=== PATIENT | male | born 1975 | race African-American/Black ===

== ENCOUNTER 2017-05-21 15:24 | Inpatient (IN) | payer OTHER ==
[2017-05-21 15:57] VITALS: BMI 25.7
--- NOTE | 2017-05-21 17:48 | HP ---
COWS - Scale Resting Pulse: 2= [place] 101-120 Sweatin= Chills/Flushing Restless Observation: 3= Extraneous Movement Pupil Size: 2= Moderately Dilated Bone or Joint Aches: 2= Severe Diffuse Aches Runny Nose/ Eye Tearin= Runny Nose/Eyes GI Upset > 30mins: 3= Vomiting/Diarrhea Tremor Observation: 2= Slight Tremor Visible Yawning Observation: 2= >3x During Session Anxiety or Irritability: 2=Irritable/Anxious Goose Flesh Skin: 0=Smooth Skin COWS Score: 21 CIWA Score - CIWA Score Nausea/Vomitin Muscle Tremors: 3 Anxiety: 3 Agitation: 3 Paroxysmal Sweats: 2 Orientation: 0-Oriented Tacttile Disturbances: 2-Mild Itch/Numbness/Burn Auditory Disturbances: 2-Mild Harshness/Frighten Visual Disturbances: 2-Mild Sensitivity Headache: 2-Mild CIWA-Ar Total Score: 22 Admission ROS BHS - HPI Chief Complaint: i need help to stop using heroin,cocaine,cannabis and alcohol Allergies/Adverse Reactions: Allergies Allergy/AdvReac Type Severity Reaction Status Date / Time No Known Allergies Allergy Verified 05/21/17 17:44 History of Present Illness: this 42 years old black male with heroin,alcohol,cocaine and marijuana dependence,seeking detox,last treamtment [facility] 07/13/11 to 07/16/11 type 2 dmon insulin hypertension nicotine dependence longest period of sobriety 2 years Exam Limitations: No Limitations - Ebola screening Have you traveled outside of the country in the last 21 days: No Have you had contact with anyone from an Ebola affected area: No Have you been sick,other than usual withdrawal symptoms: No Do you have a fever: No - Review of Systems Constitutional: Loss of Appetite, Malaise, Night Sweats, Changes in sleep, Weakness EENT: reports: Tearing, Nose Congestion Respiratory: reports: No Symptoms reported Cardiac: reports: No Symptoms Reported GI: reports: Diarrhea, Nausea, Vomiting, Abdominal cramping : reports: No Symptoms Reported Musculoskeletal: reports: Back Pain, Muscle Pain Integumentary: reports: Dryness Neuro: reports: Headache, Tremors Endocrine: reports: No Symptoms Reported Hematology: reports: No Symptoms Reported Psychiatric: reports: No Sypmtoms Reported, Judgement Intact, Mood/Affect Appropiate, Orientated x3 Patient History - Patient Medical History Hx Anemia: No Hx Asthma: No Hx Chronic Obstructive Pulmonary Disease (COPD): No Hx Cancer: No Hx Cardiac Disorders: No Hx Congestive Heart Failure: No Hx Hypertension: Yes (non comppliance) Hx Hypercholesterolemia: No Hx Pacemaker: No HX Cerebrovascular Accident: No Hx Seizures: No Hx Dementia: No Hx Diabetes: Yes (on insulin) Hx Gastrointestinal Disorders: No Hx Liver Disease: No Hx Genitourinary Disorders: No Hx Sexually Transmitted Disorders: No Hx Renal Disease (ESRD): No Hx Thyroid Disease: No Hx Human Immunodeficiency Virus (HIV): No (last 05/02 negative) Hx Hepatitis C: No Hx Depression: No Hx Suicide Attempt: No Hx Bipolar Disorder: No Hx Schizophrenia: No Other Medical History: no suicidal,no homicidal - Patient Surgical History Hx Orthopedic Surgery: Yes (left hip replacement [place] 2013) - PPD History Previous Implant?: Yes Documented Results: Negative w/o proof Implanted On Prior R Admission?: No PPD to be Administered?: Yes - Smoking Cessation Smoking history: Never smoked Aproximately how many cigarettes per day: 20 Hx Chewing Tobacco Use: No Initiated information on smoking cessation: Yes 'Breaking Loose' booklet given: 05/21/17 - Substance & Tx. History Hx Alcohol Use: Yes Hx Substance Use: Yes Substance Use Type: Alcohol, Cocaine, Heroin, Marijuana Hx Substance Use Treatment: Yes ([facility] 07/13/11 to 07/16/11) - Substances Abused Heroin Route: Inhalation Frequency: Daily Amount used: 2bags Age of first use: 35 Date of Last Use: 05/20/17 percocet Route: Oral Frequency: 3-6 times per week Amount used: 50 mgs Age of first use: 38 Date of Last Use: 05/20/17 Cocaine Route: Smoking Frequency: Daily Amount used: 100$ Age of first use: 13 Date of Last Use: 05/20/17 Marijuana/Hashish Route: Smoking Frequency: Daily Amount used: 20$ Age of first use: 13 Date of Last Use: 05/20/17 Alcohol Route: Oral Frequency: Daily Amount used: 2 of 6 packs of beer Age of first use: 13 Date of Last Use: 05/20/17 Family Disease History - Family Disease History Family History: Denies Admission Physical Exam S - Vital Signs Vital Signs: Vital Signs - 24 hr 05/21/17 15:50 Temperature 98 F Pulse Rate 108 H Respiratory 20 Rate Blood Pressure 154/99 - Physical General Appearance: Yes: Moderate Distress, Intoxicated, Tremorous, Irritable, Sweating, Anxious HEENTM: Yes: Normal ENT Inspection, YESENIA, Pharynx Normal Respiratory: Yes: Lungs Clear, Normal Breath Sounds, No Respiratory Distress Neck: Yes: Supple, Trachea in good position Breast: Yes: Within Normal Limits Cardiology: Yes: Within Normal Limits, Regular Rhythm, Regular Rate, S1, S2 Abdominal: Yes: Within Normal Limits, Normal Bowel Sounds, Non Tender, Flat, Soft Genitourinary: Yes: Within Normal Limits Back: Yes: Muscle Spasm Musculoskeletal: Yes: full range of Motion, Back pain, Muscle Pain Extremities: Yes: Normal Range of Motion, Tremors Neurological: Yes: early head start director II-XII NML intact, Alert, Motor Strength 5/5 Integumentary: Yes: Dry Lymphatic: Yes: Within Normal Limits - Diagnostic (1) Opioid dependence with withdrawal Current Visit: Yes Status: Acute (2) Alcohol dependence with uncomplicated withdrawal Current Visit: Yes Status: Acute (3) Cocaine dependence Current Visit: Yes Status: Acute (4) Cannabis dependence Current Visit: Yes Status: Acute (5) Nicotine dependence Current Visit: Yes Status: Acute (6) IDDM (insulin dependent diabetes mellitus) Current Visit: Yes Status: Acute (7) Essential hypertension Current Visit: Yes Status: Acute Cleared for Admission [facility] - Detox or Rehab [facility] Level of Care: Medically Managed Detox Regimen/Protocol: Methadone/Librium [facility] Breath Alcohol Content Breath Alcohol Content: 0 Urine Drug Screen - Results Drug Screen Negative: No Urine Drug Screen Results: THC-Marijuana, SUZY-Cocaine, OPI-Opiates
[2017-05-21] MEDS ORDERED: ACETAMINOPHEN 325 MG TABLET (FP) PO PRN (19:05)
[2017-05-21] MEDS ORDERED: MAGNESIUM CITRATE 300 ML BOTTLE PO PRN (19:05)
[2017-05-21] MEDS ORDERED: guaiFENesin/D-METHORPHAN HB 10 ML UNIT-DOSE CUPS PO PRN (19:05)
[2017-05-21] MEDS ORDERED: P-EPHED 60MG/TRIPROLIDI 2.5MG TABLET PO PRN (19:05)
[2017-05-21] MEDS ORDERED: chlordiazePOXIDE HCL 25 MG CAPSULE PO PRN (19:05)
[2017-05-21] MEDS ORDERED: LOPERAMIDE HCL 2 MG CAPSULE PO PRN (19:05)
[2017-05-21] MEDS ORDERED: MENTHOL/PHENOL 1 EACH UD MM PRN (19:05)
[2017-05-21] MEDS ORDERED: METHADONE HCL 10 MG TABLET (FOR DETOX USE ONLY) PO ONE ×2 (19:05→23:00)
[2017-05-21] MEDS ORDERED: IBUPROFEN 400 MG TABLET (FP) PO PRN (19:05)
[2017-05-21] MEDS ORDERED: chlordiazePOXIDE HCL 25 MG CAPSULE PO ONE (19:05)
[2017-05-21] MEDS: amLODIPine BESYLATE 10 MG TABLET (FP) PO SCH (19:25)
[2017-05-21] MEDS: LISINOPRIL 10 MG TABLET (FP) PO SCH (19:25)
[2017-05-21] MEDS: THIAMINE HCL 100 MG TABLET (FP) PO SCH (22:49)
[2017-05-21] MEDS: chlordiazePOXIDE HCL 25 MG CAPSULE PO SCH (22:49)
[2017-05-21] MEDS: INSULIN DETEMIR 100 UNITS/ML MDV SQ SCH (22:49)
[2017-05-21] MEDS: diphenhydrAMINE HCL 50 MG CAPSULE PO PRN (22:50)
[2017-05-21 22:52] LABS: URINE APPEARANCE CLEAR; URINE BILIRUBIN NEGATIVE (NEGATIVE); URINE BLOOD 1+ (NEGATIVE); URINE COLOR LTYELLOW; URINE GLUCOSE (UA) NEGATIVE (NEGATIVE); URINE KETONE TRACE (NEGATIVE); URINE LEUK ESTERASE NEGATIVE (NEGATIVE); URINE NITRITE NEGATIVE (NEGATIVE); URINE UROBILINOGEN NEGATIVE mg/dL (0.2-1.0)
[2017-05-21 23:05] LABS: URINE PROTEIN 2+ (NEGATIVE)
[2017-05-21 23:16] LABS: URINE BACTERIA RARE /hpf (NONE SEEN); URINE HYALINE CAST 1 /lpf; URINE MUCUS RARE; URINE RBC 1 /hpf (0-3); URINE WBC 3 /hpf (3-5)
[2017-05-22] MEDS: chlordiazePOXIDE HCL 25 MG CAPSULE PO SCH ×4 (05:45→22:54)
[2017-05-22 09:19] LABS: MCH 31.1 pg (25.7-33.7); MCHC 33.2 g/dl (32.0-35.9); MEAN CELL VOLUME 93.7 fl (80-96); MEAN PLT VOLUME 8.7 fl (7.5-11.1); PLATELET COUNT 300 K/MM3 (134-434); RDW 13.4 % (11.9-15.9); WHITE BLOOD COUNT 4.5 K/mm3 (4.0-10.0)
[2017-05-22 09:50] LABS: ALBUMIN 3.1 g/dl (3.4-5.0); ANION GAP 5 (8-16); CALCIUM 9.2 mg/dL (8.5-10.1); CO2 28 mmol/L (21-32); GLUCOSE,RANDOM 119 mg/dL (74-106)
[2017-05-22 09:55] LABS: ALK PHOS 98 U/L (45-117); BILIRUBIN,TOTAL 0.8 mg/dL (0.2-1.0); CREATININE 1.2 mg/dL (0.7-1.3); SGOT/AST 17 U/L (15-37); SGPT/ALT 27 U/L (12-78); TOT PROT 6.4 g/dl (6.4-8.2)
[2017-05-22] MEDS ORDERED: METHADONE HCL 10 MG TABLET (FOR DETOX USE ONLY) PO SCH (10:00)
[2017-05-22] MEDS: PRENATAL VITAMINS W/ FOLIC ACID TABLET (FP) PO SCH (10:48)
[2017-05-22] MEDS: LISINOPRIL 10 MG TABLET (FP) PO SCH (10:49)
[2017-05-22] MEDS: amLODIPine BESYLATE 10 MG TABLET (FP) PO SCH (10:49)
--- NOTE | 2017-05-22 12:36 | PN ---
[facility] CIWA - CIWA Score Nausea/Vomitin Muscle Tremors: 3 Anxiety: 2 Agitation: 2 Paroxysmal Sweats: 1-Minimal Palms Moist Orientation: 0-Oriented Tacttile Disturbances: 1-Very Mild Itch/Numbness Auditory Disturbances: 1-Very Mild Visual Disturbances: 1-Very Mild Sensitivity Headache: 2-Mild CIWA-Ar Total Score: 16 BHS COWS - Scale Resting Pulse: 0= [place] 80 or Below Sweatin= Chills/Flushing Restless Observation: 3= Extraneous Movement Pupil Size: 1= Pupils >than Normal Bone or Joint Aches: 2= Severe Diffuse Aches Runny Nose/ Eye Tearin= Runny Nose/Eyes GI Upset > 30mins: 2= Nausea/Diarrhea Tremor Observation of Outstretched Hands: 2= Slight Tremor Visible Yawning Observation: 1= 1-2x During Session Anxiety or Irritability: 2=Irritable/Anxious Goose Flesh Skin: 0=Smooth Skin COWS Score: 16 [facility] Progress Note (SOAP) Subjective: ALERT,IRRITABLE,ANXIOUS,INTERRUPTED SLEEP,TREMOR,PAIN IN THE BODY AND BACK Objective: 05/22/17 12:34 Vital Signs Temperature 97.9 F 05/22/17 10:29 Pulse Rate 86 05/22/17 10:29 Respiratory Rate 20 05/22/17 10:29 Blood Pressure 121/89 05/22/17 10:29 O2 Sat by Pulse Oximetry (%) 05/22/17 12:35 EKG NSR INVERTED T IN 3 NO CHEST PAIN,NO SOB NO DIZZINESS Laboratory Last Values WBC 4.5 K/mm3 (4.0-10.0) 05/22/17 07:40 RBC 4.62 M/mm3 (4.00-5.60) 05/22/17 07:40 Hgb 14.4 GM/dL (11.7-16.9) 05/22/17 07:40 Hct 43.3 % (35.4-49) 05/22/17 07:40 MCV 93.7 fl (80-96) 05/22/17 07:40 MCH 31.1 pg (25.7-33.7) 05/22/17 07:40 MCHC 33.2 g/dl (32.0-35.9) 05/22/17 07:40 RDW 13.4 % (11.9-15.9) 05/22/17 07:40 Plt Count 300 K/MM3 (134-434) 05/22/17 07:40 MPV 8.7 fl (7.5-11.1) 05/22/17 07:40 Sodium 142 mmol/L (136-145) 05/22/17 07:40 Potassium 4.2 mmol/L (3.5-5.1) 05/22/17 07:40 Chloride 109 mmol/L (98-107) H 05/22/17 07:40 Carbon Dioxide 28 mmol/L (21-32) 05/22/17 07:40 Anion Gap 5 (8-16) L 05/22/17 07:40 BUN 12 mg/dL (7-18) 05/22/17 07:40 Creatinine 1.2 mg/dL (0.7-1.3) 05/22/17 07:40 Creat Clearance w eGFR > 60 (>60) 05/22/17 07:40 POC Glucometer 318 UNITS (()) 05/21/17 22:48 Random Glucose 119 mg/dL (74-106) H 05/22/17 07:40 Calcium 9.2 mg/dL (8.5-10.1) 05/22/17 07:40 Total Bilirubin 0.8 mg/dL (0.2-1.0) 05/22/17 07:40 AST 17 U/L (15-37) 05/22/17 07:40 ALT 27 U/L (12-78) 05/22/17 07:40 Alkaline Phosphatase 98 U/L (45-117) 05/22/17 07:40 Total Protein 6.4 g/dl (6.4-8.2) 05/22/17 07:40 Albumin 3.1 g/dl (3.4-5.0) L 05/22/17 07:40 Urine Color Ltyellow 05/21/17 22:40 Urine Appearance Clear 05/21/17 22:40 Urine pH 5.0 (5.0-8.0) 05/21/17 22:40 Ur Specific [place] 1.020 (1.005-1.025) 05/21/17 22:40 Urine Protein 2+ (NEGATIVE) H 05/21/17 22:40 Urine Glucose (UA) Negative (NEGATIVE) 05/21/17 22:40 Urine Ketones Trace (NEGATIVE) H 05/21/17 22:40 Urine Blood 1+ (NEGATIVE) H 05/21/17 22:40 Urine Nitrite Negative (NEGATIVE) 05/21/17 22:40 Urine Bilirubin Negative (NEGATIVE) 05/21/17 22:40 Urine Urobilinogen Negative mg/dL (0.2-1.0) 05/21/17 22:40 Ur Leukocyte Esterase Negative (NEGATIVE) 05/21/17 22:40 Urine RBC 1 /hpf (0-3) 05/21/17 22:40 Urine WBC 3 /hpf (3-5) 05/21/17 22:40 Ur Epithelial Cells Rare /hpf (FEW) 05/21/17 22:40 Urine Bacteria Rare /hpf (NONE SEEN) 05/21/17 22:40 Hyaline Casts 1 /lpf 05/21/17 22:40 Urine Mucus Rare 05/21/17 22:40 Assessment: 05/22/17 12:36 WITHDRAWAL SYMPTOM Plan: CONTINUE DETOX,BGM MONITORING
[2017-05-22 12:52] LABS: HIV 1 & 2 AB NEGATIVE; HIV 1 AGp24 NEGATIVE
[2017-05-22] MEDS: THIAMINE HCL 100 MG TABLET (FP) PO SCH (22:56)
[2017-05-22] MEDS: INSULIN DETEMIR 100 UNITS/ML MDV SQ SCH (23:26)
[2017-05-23] MEDS: chlordiazePOXIDE HCL 25 MG CAPSULE PO SCH ×3 (06:15→18:51)
[2017-05-23] MEDS ORDERED: PNEUMOC 13-VAL CONJ-DIP CRM/PF 0.5 ML DISP.SYRIN IM ONE (10:00)
[2017-05-23] MEDS: METHADONE HCL 5 MG TABLET (FOR DETOX USE ONLY) PO SCH (10:50)
[2017-05-23] MEDS: PRENATAL VITAMINS W/ FOLIC ACID TABLET (FP) PO SCH (10:50)
[2017-05-23] MEDS: LISINOPRIL 10 MG TABLET (FP) PO SCH (10:51)
[2017-05-23] MEDS: amLODIPine BESYLATE 10 MG TABLET (FP) PO SCH (10:51)
[2017-05-23] MEDS ORDERED: COLLOIDAL OATMEAL 1 BAR EACH TP PRN (11:14)
--- NOTE | 2017-05-23 11:18 | PN ---
[facility] CIWA - CIWA Score Nausea/Vomitin Muscle Tremors: 3 Anxiety: 3 Agitation: 2 Paroxysmal Sweats: 1-Minimal Palms Moist Orientation: 0-Oriented Tacttile Disturbances: 1-Very Mild Itch/Numbness Auditory Disturbances: 1-Very Mild Visual Disturbances: 1-Very Mild Sensitivity Headache: 2-Mild CIWA-Ar Total Score: 17 BHS COWS - Scale Resting Pulse: 1= [place] 81-100 Sweatin= Chills/Flushing Restless Observation: 3= Extraneous Movement Pupil Size: 1= Pupils >than Normal Bone or Joint Aches: 2= Severe Diffuse Aches Runny Nose/ Eye Tearin= Runny Nose/Eyes GI Upset > 30mins: 2= Nausea/Diarrhea Tremor Observation of Outstretched Hands: 2= Slight Tremor Visible Yawning Observation: 1= 1-2x During Session Anxiety or Irritability: 2=Irritable/Anxious Goose Flesh Skin: 0=Smooth Skin COWS Score: 17 S Progress Note (SOAP) Subjective: alert,irritable,anxious,interrupted sleep,tremor,pain in the body and back Objective: 05/23/17 11:16 Vital Signs Temperature 97.9 F 05/23/17 09:56 Pulse Rate 83 05/23/17 09:56 Respiratory Rate 18 05/23/17 09:56 Blood Pressure 127/96 05/23/17 09:56 O2 Sat by Pulse Oximetry (%) Laboratory Last Values WBC 4.5 K/mm3 (4.0-10.0) 05/22/17 07:40 RBC 4.62 M/mm3 (4.00-5.60) 05/22/17 07:40 Hgb 14.4 GM/dL (11.7-16.9) 05/22/17 07:40 Hct 43.3 % (35.4-49) 05/22/17 07:40 MCV 93.7 fl (80-96) 05/22/17 07:40 MCH 31.1 pg (25.7-33.7) 05/22/17 07:40 MCHC 33.2 g/dl (32.0-35.9) 05/22/17 07:40 RDW 13.4 % (11.9-15.9) 05/22/17 07:40 Plt Count 300 K/MM3 (134-434) 05/22/17 07:40 MPV 8.7 fl (7.5-11.1) 05/22/17 07:40 Sodium 142 mmol/L (136-145) 05/22/17 07:40 Potassium 4.2 mmol/L (3.5-5.1) 05/22/17 07:40 Chloride 109 mmol/L (98-107) H 05/22/17 07:40 Carbon Dioxide 28 mmol/L (21-32) 05/22/17 07:40 Anion Gap 5 (8-16) L 05/22/17 07:40 BUN 12 mg/dL (7-18) 05/22/17 07:40 Creatinine 1.2 mg/dL (0.7-1.3) 05/22/17 07:40 Creat Clearance w eGFR > 60 (>60) 05/22/17 07:40 POC Glucometer 257 UNITS (()) 05/22/17 22:56 Random Glucose 119 mg/dL (74-106) H 05/22/17 07:40 Calcium 9.2 mg/dL (8.5-10.1) 05/22/17 07:40 Total Bilirubin 0.8 mg/dL (0.2-1.0) 05/22/17 07:40 AST 17 U/L (15-37) 05/22/17 07:40 ALT 27 U/L (12-78) 05/22/17 07:40 Alkaline Phosphatase 98 U/L (45-117) 05/22/17 07:40 Total Protein 6.4 g/dl (6.4-8.2) 05/22/17 07:40 Albumin 3.1 g/dl (3.4-5.0) L 05/22/17 07:40 Urine Color Ltyellow 05/21/17 22:40 Urine Appearance Clear 05/21/17 22:40 Urine pH 5.0 (5.0-8.0) 05/21/17 22:40 Ur Specific [place] 1.020 (1.005-1.025) 05/21/17 22:40 Urine Protein 2+ (NEGATIVE) H 05/21/17 22:40 Urine Glucose (UA) Negative (NEGATIVE) 05/21/17 22:40 Urine Ketones Trace (NEGATIVE) H 05/21/17 22:40 Urine Blood 1+ (NEGATIVE) H 05/21/17 22:40 Urine Nitrite Negative (NEGATIVE) 05/21/17 22:40 Urine Bilirubin Negative (NEGATIVE) 05/21/17 22:40 Urine Urobilinogen Negative mg/dL (0.2-1.0) 05/21/17 22:40 Ur Leukocyte Esterase Negative (NEGATIVE) 05/21/17 22:40 Urine RBC 1 /hpf (0-3) 05/21/17 22:40 Urine WBC 3 /hpf (3-5) 05/21/17 22:40 Ur Epithelial Cells Rare /hpf (FEW) 05/21/17 22:40 Urine Bacteria Rare /hpf (NONE SEEN) 05/21/17 22:40 Hyaline Casts 1 /lpf 05/21/17 22:40 Urine Mucus Rare 05/21/17 22:40 RPR Titer Nonreactive (NONREACTIVE) 05/22/17 07:40 HIV 1&2 Antibody Screen Negative 05/22/17 07:40 HIV P24 Antigen Negative 05/22/17 07:40 Assessment: 05/23/17 11:17 withdrawal symptom Plan: continue detox
[2017-05-23] MEDS ORDERED: PNEUMOCOCCAL 23 VACCINE 0.5 ML VIAL IM ONE (12:00)
[2017-05-23] MEDS ORDERED: NICOTINE POLACRILEX 4 MG GUM BUC PRN (15:21)
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
[2017-05-23] MEDS: metFORMIN HCL 500 MG TABLET (FP) PO SCH (18:51)
[2017-05-23] MEDS: MAGNESIUM HYDROX 2400MG/30ML ORAL SUSPENSION 30 ML CUP PO PRN (18:53)
[2017-05-23] MEDS: diphenhydrAMINE HCL 50 MG CAPSULE PO PRN (22:29)
[2017-05-23] MEDS: chlordiazePOXIDE 5 MG CAPSULE PO SCH (22:29)
[2017-05-23] MEDS: THIAMINE HCL 100 MG TABLET (FP) PO SCH (22:29)
[2017-05-23] MEDS: INSULIN DETEMIR 100 UNITS/ML MDV SQ SCH (22:49)
[2017-05-24] MEDS: chlordiazePOXIDE 5 MG CAPSULE PO SCH ×3 (06:52→17:32)
[2017-05-24] MEDS: metFORMIN HCL 500 MG TABLET (FP) PO SCH ×2 (06:52→17:32)
[2017-05-24] MEDS: amLODIPine BESYLATE 10 MG TABLET (FP) PO SCH (10:53)
[2017-05-24] MEDS: METHADONE HCL 5 MG TABLET (FOR DETOX USE ONLY) PO SCH (10:53)
[2017-05-24] MEDS: PRENATAL VITAMINS W/ FOLIC ACID TABLET (FP) PO SCH (10:53)
--- NOTE | 2017-05-24 10:54 | PN ---
S Progress Note (SOAP) Subjective: ALERT,IRRITABLE,ANXIOUS,INTERRUPTED SLEEP,INTERRUPTED SLEEP,ACHING PAIN Objective: 05/24/17 10:53 Vital Signs Temperature 96.8 F L 05/24/17 06:00 Pulse Rate 75 05/24/17 06:00 Respiratory Rate 18 05/24/17 06:00 Blood Pressure 124/77 05/24/17 06:00 O2 Sat by Pulse Oximetry (%) Assessment: 05/24/17 10:53 WITHDRAWAL SYMPTOM Plan: CONTINUE DETOX,PSYCHIATRIC REEVALUATION FOR INSOMNIA
[2017-05-24] MEDS: LISINOPRIL 10 MG TABLET (FP) PO SCH (10:55)
[2017-05-24] MEDS: MAG HYDROX/AL HYDROX/SIMETH 30 ML UNIT-DOSE CUP PO PRN (14:54)
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
[2017-05-24] MEDS ORDERED: ZOLPIDEM TARTRATE 10 MG TABLET (PARK CARE ONLY) PO PRN (17:53)
[2017-05-24] MEDS: MAGNESIUM HYDROX 2400MG/30ML ORAL SUSPENSION 30 ML CUP PO PRN (20:53)
[2017-05-24] MEDS: THIAMINE HCL 100 MG TABLET (FP) PO SCH (22:33)
[2017-05-24] MEDS: chlordiazePOXIDE HCL 10 MG CAPSULE PO SCH (22:33)
[2017-05-24] MEDS: INSULIN DETEMIR 100 UNITS/ML MDV SQ SCH (22:33)
[2017-05-25] MEDS: chlordiazePOXIDE HCL 10 MG CAPSULE PO SCH ×2 (06:08→10:27)
[2017-05-25] MEDS: metFORMIN HCL 500 MG TABLET (FP) PO SCH (06:08)
[2017-05-25] MEDS: MAG HYDROX/AL HYDROX/SIMETH 30 ML UNIT-DOSE CUP PO PRN ×2 (06:08→13:23)
--- NOTE | 2017-05-25 09:12 | PN ---
S Progress Note (SOAP) Subjective: ALERT,IRRITABLE,ANXIOUS,INTERRUPTED SLEEP Objective: 05/25/17 09:08 05/25/17 09:09 Vital Signs Temperature 97.7 F 05/25/17 06:16 Pulse Rate 75 05/25/17 06:16 Respiratory Rate 18 05/25/17 06:16 Blood Pressure 131/79 05/25/17 06:16 O2 Sat by Pulse Oximetry (%) 05/25/17 09:10 BGM 183 Assessment: 05/25/17 09:11 WITHDRAWAL SYMPTOM Plan: CONTINUE DETOX,BGM MONITORING,DISCHARGE IN AM
[2017-05-25] MEDS ORDERED: METHADONE HCL 10 MG TABLET (FOR DETOX USE ONLY) PO SCH (10:00)
[2017-05-25] MEDS: amLODIPine BESYLATE 10 MG TABLET (FP) PO SCH (10:26)
[2017-05-25] MEDS: LISINOPRIL 10 MG TABLET (FP) PO SCH (10:26)
[2017-05-25] MEDS: PRENATAL VITAMINS W/ FOLIC ACID TABLET (FP) PO SCH (10:26)
--- NOTE | 2017-05-25 11:49 | PN ---
[facility] Progress Note Note: ALERT,NO WITHDRAWAL SYMPTOM,STABLE FOR DISCHARGE TODAY,FOLLOW UP WITH AFTER CARE PROGRAM ARRANGEMENT
--- NOTE | 2017-05-25 11:57 | DS ---
[facility] Detox Discharge Summary Admission Date: 05/21/17 Discharge Date: 05/25/17 - History Present History: Alcohol Dependence, Cannabis Dependence, Cocaine Dependence, Opioid Dependence Additional Comments: FOLLOW UP WITH AFTER CARE PROGRAM ARRANGEMENT Pertinent Past History: IDDM ESSENTIAL HYPERTENSION INSOMNIA NICOTINE DEPENDENCE - Physical Exam Results Vital Signs: Vital Signs Temperature 98.1 F 05/25/17 10:08 Pulse Rate 85 05/25/17 10:08 Respiratory Rate 16 05/25/17 10:08 Blood Pressure 145/90 05/25/17 10:08 O2 Sat by Pulse Oximetry (%) Pertinent Admission Physical Exam Findings: WITHDRAWAL SYMPTOM - Treatment Hospital Course: Detox Protocol Followed, Detoxed Safely, Responded well, Discharged Condition Good, Rehab Referral Accepted Patient has Accepted a Rehab Referral to: [facility] - Medication Discharge Medications: Ambulatory Orders NK [No Known Home Medication] 05/24/17 - Diagnosis (1) Opioid dependence with withdrawal Current Visit: Yes Status: Acute (2) Alcohol dependence with uncomplicated withdrawal Current Visit: Yes Status: Acute (3) Cocaine dependence Current Visit: Yes Status: Acute (4) Cannabis dependence Current Visit: Yes Status: Acute (5) Nicotine dependence Current Visit: Yes Status: Acute (6) IDDM (insulin dependent diabetes mellitus) Current Visit: Yes Status: Chronic (7) Essential hypertension Current Visit: Yes Status: Chronic
--- NOTE | 2017-05-25 13:18 | PN ---
Psychiatric Progress Note Vital Signs: Vital Signs Period Temp Pulse Resp BP Sys/Singh Pulse Ox Last 24 Hr 97.7 F-98.1 F 75-97 16-20 101-155/71-103 Date of Session: 05/25/17 Chief Complaint:: None.Disposition conference. HPI: Detoxification treatment (alcohol,cannabis,marijuana and opioid dependence ) is completed.Patient has been accepted at [facility] for rehabilitation.Hospital course is uneventful except for a report that the patient,in an argument with girlfriend over the telephone,made threats of violence (three days ago).Mr Washington has consistently denied the accusations.He remains consistent about his desire to transition to drug rehabilitation care. ROS: Visible on the unit,ambulatory,actively interacting with others.Alert and fully oriented.No evidence of distress.Normal vitals.No somatic complaints. Current Medications: Active Medications Generic Name Dose Route Start Last Admin Trade Name Freq PRN Reason Stop Dose Admin Acetaminophen 650 mg 05/21/17 19:05 Tylenol - PO Q4H PRN FEVER OR PAIN Al Hydroxide/Mg Hydroxide 30 ml 05/21/17 19:05 05/25/17 06:08 Mylanta Oral Suspension - PO 30 ml Q6H PRN Administration DYSPEPSIA Amlodipine Besylate 10 mg 05/21/17 19:15 05/25/17 10:26 Norvasc - PO 10 mg DAILY LORE Administration Chlordiazepoxide HCl 10 mg 05/24/17 23:00 05/25/17 10:27 Librium - PO 05/25/17 17:01 10 mg [id number] OLRE Administration Colloidal Oatmeal 1 applic 05/23/17 11:14 05/23/17 12:21 Aveeno Soap - TP 1 applic DAILY PRN Administration HYGEINE Diphenhydramine HCl 50 mg 05/21/17 19:05 05/23/17 22:29 Benadryl - PO 50 mg HSMR1 PRN Administration INSOMNIA Eucalyptus/Menthol/Phenol/Sorbitol 1 each 05/21/17 19:05 Cepastat Lozenge - MM Q4H PRN SORE THROAT Guaifenesin 10 ml 05/21/17 19:05 Robitussin Dm - PO Q6H PRN COUGH Ibuprofen 400 mg 05/21/17 19:05 05/25/17 11:18 Motrin - PO 400 mg Q6H PRN Administration SEVERE PAIN Insulin Detemir 20 units 05/21/17 22:00 05/24/17 22:33 Levemir Vial SQ 20 units HS LORE Administration Lisinopril 20 mg 05/21/17 19:15 05/25/17 10:26 Prinivil PO 20 mg DAILY LORE Administration Loperamide HCl 4 mg 05/21/17 19:05 Imodium - PO Q6H PRN DIARRHEA Magnesium Citrate 300 ml 05/21/17 19:05 Citroma - PO Q48H PRN CONSTIPATION Magnesium Hydroxide 30 ml 05/21/17 19:05 05/24/17 20:53 Milk Of Magnesia - PO 30 ml DAILY PRN Administration CONSTIPATION Metformin HCl 500 mg 05/23/17 16:30 05/25/17 06:08 Glucophage - PO 500 mg BID@0700,1630 LORE Administration Methadone HCl 5 mg 05/26/17 06:00 Dolophine - PO 05/26/17 06:01 DAILY@0600 LORE Nicotine Polacrilex 4 mg 05/23/17 15:21 05/23/17 15:48 Nicorette Gum - BUC 4 mg Q2H PRN Administration NICOTINE REPLACEMENT RX Multivit/Folic Acid/Iron 1 tab 05/22/17 10:00 05/25/17 10:26 Vitamins (Sjr) - PO 1 tab DAILY LORE Administration Pseudoephedrine/Triprolidine 1 combo 05/21/17 19:05 Actifed - PO TID PRN NASAL CONGESTION Thiamine HCl 100 mg 05/21/17 22:00 05/24/17 22:33 Vitamin B1 - PO 100 mg HS LORE Administration Zolpidem Tartrate 10 mg 05/24/17 17:53 05/24/17 22:33 Ambien - PO 10 mg HS PRN Administration INSOMNIA Medication(s) Change(s): None. Current Side Effect: No Lab tests ordered: No Lab tests reviewed: Yes Provider note:: Met with patient in a Disposition conference attended by Chief psychiatrist Dr Moore,attending psychiatrist Dr Garcia,Bethanie Meneses Counselor's produce department supervisor and patient's counselor Alyssa Biswas.Mr Washington is interviewed by two psychiatrists.Patient is calm and cooperative.He insists that he has " no grudges " against his live-in girlfriend Lyubov Scott.Patient declares he is interested only in " getting help " in his struggle against drugs and alcohol.He denies past history of psychiatric hospitalizations (corroborated by Ms Scott) and states that he has never been on psychotropic medications.He is made aware of the team's decision to inform his girlfriend of his discharge + disposition to [facility].Mr Washington offers no objection.He continues to show adequate control and good judgment.Mental status is assessed : no evidence of psychosis.Patient denies hallucinations.No delusions elicited at this time.Mr Washington is adamant about NOT experiencing suicidal or homicidal ideation,intent or plan." I have known Lyubov for more than 25 years and she has been my girlfriend for past three years.I don't know where you guys got that idea that I want to hurt my woman.This is not true.We have arguments sometimes but I don't have any intent to harm her.I am taking care of my drug issues." Patient shows no signs of a cognitive impairment.He reports feeling much better and he indicates that detox treatment has been beneficial.Bottling Supervisor has established contact,via telephone,with Ms Scott at .Collateral history is taken.Ms Scott states that Mr Washington is " a good man when he is sober but he becomes a different person whenever he gets high on crack,alcohol and other drugs." She is informed (by this entry writer) of the patient' s alleged threats towards her.Ms Scott states that [place] [employer] has already dispatched officers to her residence : she confirms that she is officially warned.[place] [employer] was contacted by [facility] Case Assistant Hayden Holden.Patient's fiancee indicates,to this entry writer,that she has no particular fear,that she does not feel threatened,that she is " pleased " to learn that the patient is entering a rehabilitation program (in fact,she expresses the wish to speak to Mr Washington before his departure for [facility] as a gesture of support).Confirms that she has known Mr Washington for 30 years (three years of common-law relationship).Affirms that the patient gets out of control usually in the context of alcohol/drug intoxication.Treatment team is aware of my telephone conversation with Lyubov Scott.Mr Washington is also briefed about that initiative.MSE completed.Patient is at his baseline.Mr Washington is not a danger to self or others.Psychiatrically cleared for discharge to [facility] in [facility].Case discussed with the Director of S at [facility] Simin Salgado and Case Assistant Hayden Holden. Total face to face time:: 120 Mental Status Exam - Mental Status Exam Alert and Oriented to: Time, Place, Person Cognitive Function: Good Patient Appearance: Well Groomed Mood: Hopeful, Euthymic Affect: Normal Range Patient Behavior: Appropriate, Cooperative Speech Pattern: Clear, Appropriate Voice Loudness: Normal Thought Process: Goal Oriented Thought Disorder: Not Present Hallucinations: Denies Suicidal Ideation: Denies Homicidal Ideation: Denies Insight/Judgement: Fair Sleep: Well Appetite: Good Muscle strength/Tone: Normal Gait/Station: Normal Psychiatric Treatment Plan - Problem List (1) Alcohol dependence with uncomplicated withdrawal Comment: . (2) Cannabis dependence Comment: . (3) Cocaine dependence Comment: . (4) Opioid dependence with withdrawal Comment: . (6) Nicotine dependence Comment: . (7) Personality disorder, unspecified Comment: . (8) Essential hypertension Comment: . (9) IDDM (insulin dependent diabetes mellitus) Comment: .
[2017-05-25 14:16] VITALS: PULSE 91; TEMP 97.7
--- NOTE | 2017-05-25 14:53 | EKG ---
Test Reason : Blood Pressure : / mmHG Vent. Rate : 082 BPM Atrial Rate : 082 BPM P-R Int : 182 ms QRS Dur : 076 ms QT Int : 384 ms P-R-T Axes : 143 -01 -19 degrees QTc Int : 448 ms UNUSUAL P AXIS, POSSIBLE ECTOPIC ATRIAL RHYTHM NONSPECIFIC T WAVE ABNORMALITY ABNORMAL ECG WHEN COMPARED WITH ECG OF 25-DEC-2009 13:03, ECTOPIC ATRIAL RHYTHM HAS REPLACED SINUS RHYTHM Confirmed by TD WHITFIELD, FRANCO ([id number]) on 05/25/2017 2:53:00 PM Referred By: Confirmed By:FRANCO APPIAH MD
[2017-05-25 15:14] VITALS: BP 142/92
[2017-05-26] MEDS ORDERED: METHADONE HCL 5 MG TABLET (FOR DETOX USE ONLY) PO SCH (06:00)
== END 2017-05-25 14:22 | disposition home or self-care (01) | DRG 773 ==
LOC: YASAS 15:24 → Y6N 18:11
PROVIDERS: ADMIT Internal Medicine; ATTEND Internal Medicine
PROC: HZ2ZZZZ Detoxification Services for Substance Abuse Treatment (ICD-10-PCS; principal; 2017-05-21)
DX: F11.23 Opioid dependence with withdrawal (principal); F10.230 Alcohol dependence with withdrawal, uncomplicated; F14.20 Cocaine dependence, uncomplicated; F12.20 Cannabis dependence, uncomplicated; F17.210 Nicotine dependence, cigarettes, uncomplicated; F60.9 Personality disorder, unspecified; I10 Essential (primary) hypertension; E11.9 Type 2 diabetes mellitus without complications; G47.00 Insomnia, unspecified; Z91.14 Patient's other noncompliance with medication regimen; Z79.4 Long term (current) use of insulin; Z79.84 Long term (current) use of oral hypoglycemic drugs; Z96.641 Presence of right artificial hip joint
CPT/HCPCS: 36415; 80053; 81003; 81015; 85027; 86593; 87389; 90732; 93005; 93010; G0009

== ENCOUNTER 2018-01-12 17:02 | Inpatient (IN) | payer OTHER ==
[2018-01-12 19:34] VITALS: BMI 29.1
--- NOTE | 2018-01-12 21:54 | HP ---
COWS - Scale Resting Pulse: 1= OR 81-100 Sweatin= Chills/Flushing Restless Observation: 1= Difficult to Sit Still Pupil Size: 0= Normal to Room Light Bone or Joint Aches: 1= Mild Discomfort Runny Nose/ Eye Tearin= Nasal Congestion GI Upset > 30mins: 0= None Tremor Observation: 1= Tremor [place], Not Seen Yawning Observation: 2= >3x During Session Anxiety or Irritability: 1=Feels Anxious/Irritable Goose Flesh Skin: 3=Piloerection COWS Score: 12 CIWA Score - CIWA Score Nausea/Vomitin-Mild Nausea/No Vomiting Muscle Tremors: 3 Anxiety: 1-Mildly Anxious Agitation: 0-Normal Activity Paroxysmal Sweats: 1-Minimal Palms Moist Orientation: 1-Uncertain about Date Tacttile Disturbances: 0-None Auditory Disturbances: 0-None Visual Disturbances: 2-Mild Sensitivity Headache: 3-Moderate CIWA-Ar Total Score: 12 Admission ROS BHS - HPI Chief Complaint: I feel shaky, I am here to get off the alcohol Allergies/Adverse Reactions: Allergies Allergy/AdvReac Type Severity Reaction Status Date / Time No Known Allergies Allergy Verified 09/19/17 19:37 History of Present Illness: patient is a 42 years old black male with alcohol,cocaine, nicotine and marijuana dependence is here seeking detox. Reports he currently does no use opiate, but Utox positive opiates, as per patient opiates is not a problem. [facility] Reference #: [id number] Last detox last treamtment [facility] 05/21/17 -. PMHX: insomnia, depression, DM II on insulin therapy, HTN n nicotine dependence longest period of sobriety 2 years Denies suicidal / homicidal ideation or suicide attempts Reports hx of seizure 2 years ago and was in DKA. Exam Limitations: No Limitations - Ebola screening Have you traveled outside of the country in the last 21 days: No (N) Have you had contact with anyone from an Ebola affected area: No Have you been sick,other than usual withdrawal symptoms: No Do you have a fever: No - Review of Systems Constitutional: Chills, Changes in sleep, Weakness EENT: reports: Nose Congestion Respiratory: reports: No Symptoms reported Cardiac: reports: No Symptoms Reported GI: reports: Poor Fluid Intake, Abdominal cramping : reports: No Symptoms Reported Musculoskeletal: reports: Joint Pain Integumentary: reports: No Symptoms Reported Neuro: reports: See HPI, Headache, Tingling (both feet), Tremors Endocrine: reports: Excessive Sweating, Increased Thirst Hematology: reports: No Symptoms Reported Psychiatric: reports: Orientated x3, Depressed Other Systems: Reviewed and Negative Patient History - Patient Medical History Hx Anemia: No Hx Asthma: No Hx Chronic Obstructive Pulmonary Disease (COPD): No Hx Cancer: No Hx Cardiac Disorders: No Hx Congestive Heart Failure: No Hx Hypertension: Yes (non comppliance) Hx Hypercholesterolemia: No Hx Pacemaker: No HX Cerebrovascular Accident: No Hx Seizures: Yes (2 years ago and went into DKA ) Hx Dementia: No Hx Diabetes: Yes (on insulin) Hx Gastrointestinal Disorders: No Hx Liver Disease: No Hx Genitourinary Disorders: No Hx Sexually Transmitted Disorders: No Hx Renal Disease (ESRD): No Hx Thyroid Disease: No Hx Human Immunodeficiency Virus (HIV): No (last 05/02 negative) Hx Hepatitis C: No Hx Depression: Yes Hx Suicide Attempt: No Hx Bipolar Disorder: No Hx Schizophrenia: No - Patient Surgical History Past Surgical History: Yes Hx Neurologic Surgery: No Hx Cataract Extraction: No Hx Cardiac Surgery: No Hx Lung Surgery: No Hx Breast Surgery: No Hx Breast Biopsy: No Hx Abdominal Surgery: No Hx Appendectomy: No Hx Cholecystectomy: No Hx Genitourinary Surgery: No Hx Section: No Hx Orthopedic Surgery: Yes (left hip replacement [facility] 2013, Left knee replacement 1989) Anesthesia Reaction: No - PPD History Documented Results: Negative w/proof Date: 05/23/17 PPD to be Administered?: No - Reproductive History Patient is a Female of Child Bearing Age (11 -55 yrs old): No - Smoking Cessation Smoking history: Never smoked Have you smoked in the past 12 months: Yes Aproximately how many cigarettes per day: 20 Hx Chewing Tobacco Use: No Initiated information on smoking cessation: Yes 'Breaking Loose' booklet given: 01/12/18 - Substance & Tx. History Hx Alcohol Use: Yes Hx Substance Use: Yes Substance Use Type: Alcohol, Cocaine, Marijuana - Substances Abused Alcohol Route: Oral Frequency: Daily Heroin Route: Inhalation Frequency: 3-6 times per week Amount used: 1 bag Date of Last Use: 01/12/18 Cocaine Route: Inhalation Frequency: Daily Amount used: $100 Age of first use: 13 Date of Last Use: 01/12/18 Admission Physical Exam [facility] - Vital Signs Vital Signs: Vital Signs - 24 hr 01/12/18 19:32 Temperature 97.7 F Pulse Rate 88 Respiratory 18 Rate Blood Pressure 134/94 - Physical General Appearance: Yes: Nourished, Disheveled, Irritable HEENTM: Yes: EOMI, Hearing grossly Normal, Normal ENT Inspection, Normocephalic , Normal Voice, YESENIA, Pharynx Normal, Tm's normal Respiratory: Yes: Chest Non-Tender, Lungs Clear, Normal Breath Sounds, No Respiratory Distress, No Accessory Muscle Use Neck: Yes: No masses,lesions,Nodules, Trachea in good position Breast: Yes: Breast Exam Deferred Cardiology: Yes: Regular Rhythm, Regular Rate, S1, S2 Abdominal: Yes: Normal Bowel Sounds, Non Tender, Flat, Soft Genitourinary: Yes: Within Normal Limits Back: Yes: Normal Inspection Musculoskeletal: Yes: full range of Motion, Gait Steady, Pelvis Stable Extremities: Yes: Normal Capillary Refill, Normal Inspection, Normal Range of Motion, Non-Tender Neurological: Yes: etl manager II-XII NML intact, Fully Oriented, Alert, Motor Strength 5/5, Depressed Affect Integumentary: Yes: Normal Color, Dry, Warm Lymphatic: Yes: Within Normal Limits - Diagnostic (1) Alcohol dependence with uncomplicated withdrawal Current Visit: No Status: Acute Comment: . (2) Cocaine dependence Current Visit: No Status: Acute Comment: . (3) Nicotine dependence Current Visit: Yes Status: Acute Qualifiers: Nicotine product type: cigarettes Comment: . (4) Opioid dependence with withdrawal Current Visit: Yes Status: Acute Comment: . (5) Essential hypertension Current Visit: Yes Status: Chronic Comment: . (6) IDDM (insulin dependent diabetes mellitus) Current Visit: Yes Status: Chronic Comment: . Cleared for Admission [facility] - Detox or Rehab [facility] Level of Care: Medically Managed Detox Regimen/Protocol: Methadone/Librium [facility] Breath Alcohol Content Breath Alcohol Content: 0 Urine Drug Screen - Results Drug Screen Negative: No Urine Drug Screen Results: THC-Marijuana, SUZY-Cocaine, OPI-Opiates
[2018-01-12] MEDS ORDERED: MELATONIN 5 MG TABLETS PO PRN (22:00)
[2018-01-12] MEDS ORDERED: P-EPHED 60MG/TRIPROLIDI 2.5MG TABLET PO PRN (22:14)
[2018-01-12] MEDS ORDERED: guaiFENesin/D-METHORPHAN HB 10 ML UNIT-DOSE CUPS PO PRN (22:14)
[2018-01-12] MEDS ORDERED: LOPERAMIDE HCL 2 MG CAPSULE PO PRN (22:14)
[2018-01-12] MEDS ORDERED: chlordiazePOXIDE HCL 25 MG CAPSULE PO PRN (22:14)
[2018-01-12] MEDS ORDERED: MAGNESIUM CITRATE 300 ML BOTTLE PO PRN (22:14)
[2018-01-12] MEDS ORDERED: MENTHOL/PHENOL 1 EACH UD MM PRN (22:14)
[2018-01-12] MEDS ORDERED: hydrOXYzine PAMOATE 50 MG CAPSULE (FP) PO PRN (22:14)
[2018-01-12] MEDS ORDERED: MAG HYDROX/AL HYDROX/SIMETH 30 ML UNIT-DOSE CUP PO PRN (22:14)
[2018-01-12] MEDS ORDERED: METHADONE HCL 10 MG TABLET (FOR DETOX USE ONLY) PO ONE ×2 (22:14→23:00)
[2018-01-12] MEDS ORDERED: IBUPROFEN 400 MG TABLET (FP) PO PRN (22:14)
[2018-01-12] MEDS ORDERED: NICOTINE POLACRILEX 2 MG GUM BC PRN (22:14)
[2018-01-12] MEDS ORDERED: MAGNESIUM HYDROX 2400MG/30ML ORAL SUSPENSION 30 ML CUP PO PRN (22:14)
[2018-01-12] MEDS ORDERED: ACETAMINOPHEN 325 MG TABLET (FP) PO PRN (22:14)
[2018-01-12] MEDS ORDERED: INSULIN DETEMIR 100 UNITS/ML MDV SQ ONE (23:45)
[2018-01-12] MEDS ORDERED: INSULIN (NOVOLOG) ASPART 100 UNITS/ML 10ML VIAL SQ ONE (23:46)
[2018-01-12] MEDS: chlordiazePOXIDE HCL 25 MG CAPSULE PO SCH (23:46)
[2018-01-13 01:28] LABS: URINE APPEARANCE CLEAR; URINE BILIRUBIN NEGATIVE (<2.0 mg/dL); URINE BLOOD NEGATIVE (NEGATIVE); URINE COLOR LTYELLOW; URINE GLUCOSE (UA) 3+ (NEGATIVE); URINE KETONE NEGATIVE (NEGATIVE); URINE LEUK ESTERASE NEGATIVE (NEGATIVE); URINE NITRITE NEGATIVE (NEGATIVE); URINE UROBILINOGEN NEGATIVE mg/dL (0.2-1.0)
[2018-01-13 01:43] LABS: URINE PROTEIN 2+ (NEGATIVE)
[2018-01-13 01:52] LABS: EPI CELLS RARE /HPF (FEW)
[2018-01-13] MEDS: metFORMIN HCL 500 MG TABLET (FP) PO SCH ×2 (06:03→17:32)
[2018-01-13] MEDS: chlordiazePOXIDE HCL 25 MG CAPSULE PO SCH ×3 (06:03→17:49)
[2018-01-13] MEDS ORDERED: INSULIN SLIDING SCALE (NOVOLOG) 1 VIAL SQ SCH ×2 (07:00→16:30)
[2018-01-13] MEDS ORDERED: amLODIPine BESYLATE 10 MG TABLET (FP) PO SCH (10:00)
[2018-01-13] MEDS ORDERED: NICOTINE 14 MG/24 HOURS TOPICAL PATCH TD SCH (10:00)
[2018-01-13] MEDS ORDERED: METHADONE HCL 10 MG TABLET (FOR DETOX USE ONLY) PO SCH (10:00)
[2018-01-13] MEDS ORDERED: PRENATAL VITAMINS W/ FOLIC ACID TABLET (FP) PO SCH (10:00)
--- NOTE | 2018-01-13 10:04 | EKG ---
Test Reason : Blood Pressure : / mmHG Vent. Rate : 088 BPM Atrial Rate : 088 BPM P-R Int : 162 ms QRS Dur : 078 ms QT Int : 374 ms P-R-T Axes : 070 042 -08 degrees QTc Int : 452 ms NORMAL SINUS RHYTHM T WAVE ABNORMALITY, CONSIDER INFERIOR ISCHEMIA ABNORMAL ECG Confirmed by JOS BHATIA MD ([id number]) on 01/13/2018 10:04:17 AM Referred By: Confirmed By:JOS BHATIA MD
[2018-01-13 10:23] LABS: HEMOGLOBIN 14.1 GM/dL (11.7-16.9); MCH 32.7 pg (25.7-33.7); MCHC 34.4 g/dl (32.0-35.9); MEAN PLT VOLUME 8.8 fl (7.5-11.1); PLATELET COUNT 269 K/MM3 (134-434); RBC 4.32 M/mm3 (4.00-5.60); RDW 15.2 % (11.9-15.9); WHITE BLOOD COUNT 4.9 K/mm3 (4.0-10.0)
[2018-01-13 10:25] LABS: ALBUMIN 3.2 g/dl (3.4-5.0); ANION GAP 9 (8-16); BILIRUBIN,TOTAL 0.5 mg/dL (0.2-1.0); BLOOD UREA NITROGEN 16 mg/dL (7-18); CALCIUM 8.7 mg/dL (8.5-10.1); CHLORIDE 106 mmol/L (98-107); CO2 28 mmol/L (21-32); CREATININE 1.5 mg/dL (0.7-1.3); GLUCOSE,RANDOM 116 mg/dL (74-106); SGOT/AST 28 U/L (15-37); SGPT/ALT 30 U/L (12-78); SODIUM 143 mmol/L (136-145); TOT PROT 6.2 g/dl (6.4-8.2)
[2018-01-13 10:26] LABS: ALK PHOS 103 U/L (45-117)
--- NOTE | 2018-01-13 10:58 | CONSULT ---
[facility] Psychiatric Consult - Data Date of interview: 01/13/18 Admission source: [facility] Identifying data: Another admission to [facility] for this 42 y/o AA male seeking detox treatment on for heroin,cocaine,alcohol and marijuana dependence.Patient is single,a father of two,homeless,unemployed and supported on SSI benefits. Substance Abuse History: Discussed in session.Mr Washington admits to current use of alcohol,heroin,cocaine and marihuana. Details in current [facility] report : Smoking history: Never smoked. Have you smoked in the past 12 months: Yes. Aproximately how many cigarettes per day: 20. Hx Chewing Tobacco Use: No. Initiated information on smoking cessation: Yes. 'Breaking Loose' booklet given : 01/12/18. - Substance & Tx. History. Hx Alcohol Use: Yes. Hx Substance Use : Yes. Substance Use Type: Alcohol, Cocaine, Marijuana. - Substances Abused. Alcohol. Route: Oral. Frequency: Daily. Heroin. Route: Inhalation. Frequency: 3-6 times per week. Amount used: 1 bag. Date of Last Use: . Cocaine. Route: Inhalation. Frequency: Daily. Amount used: $100. Age of first use: 13. Date of Last Use: 01/12/18 Medical History: Hypertension,diabetes mellitus (ketoacidosis two years ago) and history of right hip replacement (2013) + left knee surgery (1989). Psychiatric History: Patient denies. Physical/Sexual Abuse/Trauma History: Patient denies. Additional Comment: Urine Drug Screen Results: THC-Marijuana, SUZY-Cocaine, OPI- Opiates.Noted. Mental Status Exam - Mental Status Exam Alert and Oriented to: Time, Place, Person Cognitive Function: Grossly Intact Patient Appearance: Unkempt, Disheveled Mood: Nervous, Withdrawn, Irritable Affect: Mood Congruent Patient Behavior: Fatigued, Uncooperative Speech Pattern: Slurred Voice Loudness: Normal Thought Process: Goal Oriented Thought Disorder: Not Present Hallucinations: Denies Suicidal Ideation: Denies Homicidal Ideation: Denies Insight/Judgement: Poor Sleep: Well Appetite: Good Muscle strength/Tone: Normal Gait/Station: Other (not observed ; patient lying in bed through interview) Psychiatric Findings - Problem List ([place] 1, 2,3) (1) Alcohol dependence with uncomplicated withdrawal Current Visit: Yes Status: Acute Comment: . (2) Opioid dependence with withdrawal Current Visit: Yes Status: Acute Comment: . (3) Cannabis dependence Current Visit: Yes Status: Acute Comment: . (4) Cocaine dependence Current Visit: Yes Status: Acute Comment: . (5) Nicotine dependence Current Visit: Yes Status: Acute Qualifiers: Nicotine product type: cigarettes Comment: . - Initial Treatment Plan Initial Treatment Plan: Previous records are revisited.Psychoeducation.Detoxification in progress.Observation.
[2018-01-13 12:22] LABS: SICKLE CELL SCREEN POSITIVE (NEGATIVE)
[2018-01-13] MEDS ORDERED: INSULIN (NOVOLOG) ASPART 100 UNITS/ML 10ML VIAL SQ ONE (12:30)
[2018-01-13] MEDS ORDERED: INSULIN (NOVOLOG) ASPART 100 UNITS/ML 10ML VIAL ONE (12:54)
--- NOTE | 2018-01-13 15:07 | PN ---
S CIWA - CIWA Score Nausea/Vomitin-No Nausea/No Vomiting Muscle Tremors: 4-Moderate,w/Arms Extend Anxiety: 4-Mod. Anxious/Guarded Agitation: 4-Moderately Restless Paroxysmal Sweats: 1-Minimal Palms Moist Orientation: 0-Oriented Tacttile Disturbances: 0-None Auditory Disturbances: 0-None Visual Disturbances: 0-None Headache: 0-None Present CIWA-Ar Total Score: 13 BHS COWS - Scale Resting Pulse: 1= RI 81-100 Sweatin= Chills/Flushing Restless Observation: 3= Extraneous Movement Pupil Size: 2= Moderately Dilated Bone or Joint Aches: 1= Mild Discomfort Runny Nose/ Eye Tearin= Nasal Congestion GI Upset > 30mins: 0= None Tremor Observation of Outstretched Hands: 2= Slight Tremor Visible Yawning Observation: 1= 1-2x During Session Anxiety or Irritability: 2=Irritable/Anxious Goose Flesh Skin: 0=Smooth Skin COWS Score: 14 S Progress Note (SOAP) Subjective: ANXIETY,CHILLS, SLIGHTLY DROWSY THIS MORNING DURING ROUNDS. STATES HE IS TIRED. Objective: 01/13/18 15:09 Vital Signs Temperature 97 F L 01/13/18 13:36 Pulse Rate 90 01/13/18 13:36 Respiratory Rate 20 01/13/18 13:36 Blood Pressure 128/78 01/13/18 13:36 O2 Sat by Pulse Oximetry (%) Laboratory Last Values WBC 4.9 K/mm3 (4.0-10.0) 01/13/18 08:00 RBC 4.32 M/mm3 (4.00-5.60) 01/13/18 08:00 Hgb 14.1 GM/dL (11.7-16.9) 01/13/18 08:00 Hct 41.0 % (35.4-49) 01/13/18 08:00 MCV 95.0 fl (80-96) 01/13/18 08:00 MCH 32.7 pg (25.7-33.7) 01/13/18 08:00 MCHC 34.4 g/dl (32.0-35.9) 01/13/18 08:00 RDW 15.2 % (11.9-15.9) D 01/13/18 08:00 Plt Count 269 K/MM3 (134-434) 01/13/18 08:00 MPV 8.8 fl (7.5-11.1) 01/13/18 08:00 Sickle Cell Screen Positive (NEGATIVE) 01/13/18 08:00 Sodium 143 mmol/L (136-145) 01/13/18 08:00 Potassium 4.0 mmol/L (3.5-5.1) 01/13/18 08:00 Chloride 106 mmol/L (98-107) 01/13/18 08:00 Carbon Dioxide 28 mmol/L (21-32) 01/13/18 08:00 Anion Gap 9 (8-16) 01/13/18 08:00 BUN 16 mg/dL (7-18) D 01/13/18 08:00 Creatinine 1.5 mg/dL (0.7-1.3) H D 01/13/18 08:00 Creat Clearance w eGFR 50.84 (>60) 01/13/18 08:00 POC Glucometer 301 UNITS (80-120) 01/13/18 11:28 Random Glucose 116 mg/dL (74-106) H 01/13/18 08:00 Calcium 8.7 mg/dL (8.5-10.1) 01/13/18 08:00 Total Bilirubin 0.5 mg/dL (0.2-1.0) D 01/13/18 08:00 AST 28 U/L (15-37) D 01/13/18 08:00 ALT 30 U/L (12-78) 01/13/18 08:00 Alkaline Phosphatase 103 U/L (45-117) 01/13/18 08:00 Total Protein 6.2 g/dl (6.4-8.2) L 01/13/18 08:00 Albumin 3.2 g/dl (3.4-5.0) L 01/13/18 08:00 Urine Color Ltyellow 01/13/18 00:08 Urine Appearance Clear 01/13/18 00:08 Urine pH 5.0 (5.0-8.0) 01/13/18 00:08 Ur Specific [place] 1.012 (1.001-1.035) 01/13/18 00:08 Urine Protein 2+ (NEGATIVE) H 01/13/18 00:08 Urine Glucose (UA) 3+ (NEGATIVE) H 01/13/18 00:08 Urine Ketones Negative (NEGATIVE) 01/13/18 00:08 Urine Blood Negative (NEGATIVE) 01/13/18 00:08 Urine Nitrite Negative (NEGATIVE) 01/13/18 00:08 Urine Bilirubin Negative (<2.0 mg/dL) 01/13/18 00:08 Urine Urobilinogen Negative mg/dL (0.2-1.0) 01/13/18 00:08 Ur Leukocyte Esterase Negative (NEGATIVE) 01/13/18 00:08 Urine WBC (Auto) 10 /hpf (3-5) 01/13/18 00:08 Urine RBC (Auto) 1 /hpf (0-3) 01/13/18 00:08 Ur Epithelial Cells Rare /HPF (FEW) 01/13/18 00:08 RPR Titer Nonreactive (NONREACTIVE) 01/13/18 08:00 Assessment: 01/13/18 15:09 WITHDRAWAL SX Plan: CONTINUE DETOX
--- NOTE | 2018-01-13 18:14 | DS ---
[facility] Detox Discharge Summary Admission Date: 01/12/18 Discharge Date: 01/13/18 - History Present History: Alcohol Dependence, Cannabis Dependence, Cocaine Dependence, Opioid Dependence Additional Comments: Patient insist on leaving today, although advise to stay and continue to treatment. Patient left the unit and did not wait for further evaluation or counseling. Pertinent Past History: DM II HTN - Physical Exam Results Vital Signs: Vital Signs Temperature 97 F L 01/13/18 13:36 Pulse Rate 90 01/13/18 13:36 Respiratory Rate 20 01/13/18 13:36 Blood Pressure 128/78 01/13/18 13:36 O2 Sat by Pulse Oximetry (%) - Medication Discharge Medications: Ambulatory Orders Amlodipine Besylate [Norvasc -] 10 mg PO DAILY #30 tablet 05/25/17 Insulin (Levemir) [Levemir Vial] 20 units SQ HS #1 ml 05/25/17 metFORMIN HCL [Glucophage -] 500 mg PO BID@0700,1630 #60 tablet 05/25/17 - Diagnosis (1) Alcohol dependence with uncomplicated withdrawal Current Visit: Yes Status: Acute (2) Cocaine dependence Current Visit: Yes Status: Acute (3) Nicotine dependence Current Visit: Yes Status: Acute Qualifiers: Nicotine product type: cigarettes Substance use status: in withdrawal Qualified Code(s): F17.213 - Nicotine dependence, cigarettes, with withdrawal (4) Opioid dependence with withdrawal Current Visit: Yes Status: Acute (5) Essential hypertension Current Visit: Yes Status: Chronic (6) IDDM (insulin dependent diabetes mellitus) Current Visit: Yes Status: Chronic - AMA Did Patient Leave Against Medical Advice: Yes
[2018-01-13 18:23] VITALS: BP 131/79; PULSE 94; TEMP 96.3
[2018-01-13] MEDS ORDERED: THIAMINE HCL 100 MG TABLET (FP) PO SCH (22:00)
[2018-01-13] MEDS ORDERED: INSULIN DETEMIR 100 UNITS/ML MDV SQ SCH (22:00)
[2018-01-13] MEDS ORDERED: chlordiazePOXIDE HCL 25 MG CAPSULE PO SCH (23:00)
[2018-01-14] MEDS ORDERED: METHADONE HCL 5 MG TABLET (FOR DETOX USE ONLY) PO SCH (10:00)
[2018-01-14] MEDS ORDERED: chlordiazePOXIDE 5 MG CAPSULE PO SCH (23:00)
[2018-01-15] MEDS ORDERED: chlordiazePOXIDE HCL 10 MG CAPSULE PO SCH (23:00)
[2018-01-16] MEDS ORDERED: METHADONE HCL 10 MG TABLET (FOR DETOX USE ONLY) PO SCH (10:00)
[2018-01-17] MEDS ORDERED: METHADONE HCL 5 MG TABLET (FOR DETOX USE ONLY) PO SCH (06:00)
== END 2018-01-13 17:50 | disposition left against medical advice (07) | DRG 770 ==
LOC: YASAS 17:02 → Y3N 23:15
PROVIDERS: ADMIT Internal Medicine; ATTEND Internal Medicine
PROC: HZ2ZZZZ Detoxification Services for Substance Abuse Treatment (ICD-10-PCS; principal; 2018-01-12)
DX: F11.20 Opioid dependence, uncomplicated (principal); F10.230 Alcohol dependence with withdrawal, uncomplicated; F14.20 Cocaine dependence, uncomplicated; F17.213 Nicotine dependence, cigarettes, with withdrawal; F32.9 Major depressive disorder, single episode, unspecified; I10 Essential (primary) hypertension; E11.9 Type 2 diabetes mellitus without complications; Z79.4 Long term (current) use of insulin; Z86.69 Personal history of other diseases of the nervous system and sense organs; Z96.642 Presence of left artificial hip joint; Z96.652 Presence of left artificial knee joint
CPT/HCPCS: 36415; 80053; 81003; 81015; 82962; 83021; 85027; 85660; 86593; 93005; 93010

== ENCOUNTER 2019-04-07 14:51 | Inpatient (IN) | payer OTHER ==
[2019-04-07 17:18] VITALS: BMI 29.0
--- NOTE | 2019-04-07 18:40 | HP ---
CIWA Score Nausea/Vomitin Muscle Tremors: 2 Anxiety: 2 Agitation: 2 Paroxysmal Sweats: 1-Minimal Palms Moist Orientation: 0-Oriented Tacttile Disturbances: 1-Very Mild Itch/Numbness Auditory Disturbances: 1-Very Mild Visual Disturbances: 0-None Headache: 2-Mild CIWA-Ar Total Score: 13 - Admission Criteria OASAS Guidelines: Admission for Medically Managed Detox: Requires at least one of the followin. CIWA greater than 12 2. Seizures within the past 24 hours 3. Delirium tremens within the past 24 hours 4. Hallucinations within the past 24 hours 5. Acute intervention needed for co occurring medical disorder 6. Acute intervention needed for co occurring psychiatric disorder 7. Severe withdrawal that cannot be handled at a lower level of care (continued vomiting, continued diarrhea, abnormal vital signs) requiring intravenous medication and/or fluids 8. Admission ROS [facility] - HPI Chief Complaint: i need help to stop drinking alcohol,marijuana,pcp Allergies/Adverse Reactions: Allergies Allergy/AdvReac Type Severity Reaction Status Date / Time No Known Allergies Allergy Verified 04/07/19 17:04 History of Present Illness: this 44 years old male with alcohol,cocaine and marijuana dependence,seeking detox,withdrawal symptom, last detox [facility] 01/12/18 to 01/13/18 type 2 dm on insulin,also has hypertension, last medicated 5 dyays ago nicotine dependence 1 pack/day,would like to have nicotine patch and gum longest period of sobriety 1 year Exam Limitations: No Limitations - Ebola screening Have you traveled outside of the country in the last 21 days: No (N) Have you had contact with anyone from an Ebola affected area: No Do you have a fever: No - Review of Systems Constitutional: Loss of Appetite, Malaise, Night Sweats, Changes in sleep, Weakness EENT: reports: Nose Congestion Respiratory: reports: No Symptoms reported Cardiac: reports: Palpitations GI: reports: Nausea, Poor Appetite, Abdominal cramping : reports: No Symptoms Reported Musculoskeletal: reports: Back Pain, Muscle Pain Integumentary: reports: Dryness Neuro: reports: Tremors Hematology: reports: No Symptoms Reported Psychiatric: reports: No Sypmtoms Reported, Judgement Intact, Mood/Affect Appropiate, Orientated x3 Other Systems: Reviewed and Negative Patient History - Patient Medical History Hx Anemia: No Hx Asthma: No Hx Chronic Obstructive Pulmonary Disease (COPD): No Hx Cancer: No Hx Cardiac Disorders: No Hx Congestive Heart Failure: No Hx Hypertension: Yes (non comppliance) Hx Hypercholesterolemia: No Hx Pacemaker: No HX Cerebrovascular Accident: No Hx Seizures: Yes (2 years ago and went into DKA ) Hx Dementia: No Hx Diabetes: Yes (on insulin) Hx Gastrointestinal Disorders: No Hx Liver Disease: No Hx Genitourinary Disorders: No Hx Sexually Transmitted Disorders: No Hx Renal Disease (ESRD): No Hx Thyroid Disease: No Hx Human Immunodeficiency Virus (HIV): No (last 11/04 negative) Hx Hepatitis C: No Hx Depression: Yes Hx Suicide Attempt: No Hx Bipolar Disorder: No Hx Schizophrenia: No Other Medical History: no suicidal,no homicidal - Patient Surgical History Past Surgical History: Yes Hx Neurologic Surgery: No Hx Cataract Extraction: No Hx Cardiac Surgery: No Hx Lung Surgery: No Hx Breast Surgery: No Hx Breast Biopsy: No Hx Abdominal Surgery: No Hx Appendectomy: No Hx Cholecystectomy: No Hx Genitourinary Surgery: No Hx Section: No Hx Orthopedic Surgery: Yes (left hip replacement [facility] 2013, Left knee replacement 1989) Anesthesia Reaction: No - PPD History Previous Implant?: Yes Documented Results: Negative w/o proof Date: 05/23/17 PPD to be Administered?: Yes - Smoking Cessation Smoking history: Never smoked Have you smoked in the past 12 months: Yes Aproximately how many cigarettes per day: 20 Hx Chewing Tobacco Use: No Initiated information on smoking cessation: Yes 'Breaking Loose' booklet given: 04/07/19 - Substance & Tx. History Hx Alcohol Use: Yes Hx Substance Use: Yes Substance Use Type: Alcohol, Cocaine, Marijuana Hx Substance Use Treatment: Yes ([facility] 01/12/18 to 01/13/18 not completed) - Substances abused Cocaine Substance route: Inhalation Frequency: Daily Amount used: 1 gram Age of first use: 25 Date of last use: 04/06/19 Marijuana/Hashish Substance route: Smoking Frequency: 3-6 times per week Amount used: 10 dollars Age of first use: 13 Date of last use: 04/06/19 PCP Substance route: Smoking Frequency: 1-3 times last 30 days Amount used: 1 cigarrette of PCP Age of first use: 35 Date of last use: 04/05/19 Alcohol Substance route: Smoking Frequency: Daily (1 pint of) Amount used: 1 pint of vodka/12 packs of 16 ozs of beer Age of first use: 10 Date of last use: 04/07/19 Family Disease History - Family Disease History Family History: Denies Admission Physical Exam [facility] - Vital Signs Vital Signs: Vital Signs - 24 hr 04/07/19 17:04 Temperature 98.6 F Pulse Rate 101 H Respiratory 18 Rate Blood Pressure 138/86 - Physical General Appearance: Yes: Moderate Distress, Tremorous, Irritable, Sweating, Anxious HEENTM: Yes: Normal ENT Inspection, Normocephalic, YESENIA, Pharynx Normal Respiratory: Yes: Within Normal Limits, Lungs Clear, Normal Breath Sounds Neck: Yes: Within Normal Limits, Supple, Trachea in good position Breast: Yes: Within Normal Limits Cardiology: Yes: Within Normal Limits, Regular Rhythm, Regular Rate, S1, S2 Abdominal: Yes: Within Normal Limits, Normal Bowel Sounds, Non Tender, Flat, Soft Genitourinary: Yes: Within Normal Limits Back: Yes: Muscle Spasm Musculoskeletal: Yes: Back pain, Muscle Pain Extremities: Yes: Normal Range of Motion, Tremors Neurological: Yes: shoe maker II-XII NML intact, Fully Oriented, Alert, Motor Strength 5/5 Integumentary: Yes: Dry Lymphatic: Yes: Within Normal Limits - Diagnostic (1) Alcohol dependence with uncomplicated withdrawal Current Visit: No Status: Acute Comment: . (2) Cannabis dependence Current Visit: No Status: Acute Comment: . (3) Cocaine dependence Current Visit: No Status: Acute Comment: . (4) Insomnia Current Visit: No Status: Acute (5) Nicotine dependence Current Visit: No Status: Acute Qualifiers: Nicotine product type: cigarettes Substance use status: in withdrawal Qualified Code(s): F17.213 - Nicotine dependence, cigarettes, with withdrawal Comment: . (6) Personality disorder, unspecified Current Visit: No Status: Acute Comment: . (7) Essential hypertension Current Visit: No Status: Chronic Comment: . (8) IDDM (insulin dependent diabetes mellitus) Current Visit: No Status: Chronic Comment: . Cleared for Admission [facility] - Detox or Rehab Detox Regimen/Protocol: Librium Breathalyzer - Breathalyzer Breathalyzer: 0 Urine Drug Screen - Test Device Lot number: [id number] Expiration date: 12/14/20 - Control Is test valid?: Yes - Results Drug screen NEGATIVE: No Urine drug screen results: THC-Marijuana, SUZY-Cocaine Inpatient Rehab Admission - Rehab Decision to Admit Inpatient rehab admission?: No
[2019-04-07] MEDS ORDERED: chlordiazePOXIDE HCL 25 MG CAPSULE PO PRN (18:54)
[2019-04-07] MEDS ORDERED: MENTHOL/PHENOL 1 EACH UD MM PRN (18:54)
[2019-04-07] MEDS ORDERED: ACETAMINOPHEN 325 MG TABLET (FP) PO PRN ×2 (18:54)
[2019-04-07] MEDS ORDERED: MAGNESIUM CITRATE 300 ML BOTTLE PO PRN (18:54)
[2019-04-07] MEDS ORDERED: BISMUTH SUBSALICYLATE 524 MG/30 ML UD PO PRN (18:54)
[2019-04-07] MEDS ORDERED: MAG HYDROX/AL HYDROX/SIMETH 30 ML UNIT-DOSE CUP PO PRN (18:54)
[2019-04-07] MEDS ORDERED: IBUPROFEN 400 MG TABLET (FP) PO PRN (18:54)
[2019-04-07] MEDS ORDERED: MAGNESIUM HYDROX 2400MG/30ML ORAL SUSPENSION 30 ML CUP PO PRN (18:54)
[2019-04-07] MEDS: INSULIN SLIDING SCALE (NOVOLOG) 1 VIAL SQ SCH (22:54)
[2019-04-07] MEDS: chlordiazePOXIDE HCL 25 MG CAPSULE PO SCH (22:55)
[2019-04-07] MEDS: THIAMINE HCL 100 MG TABLET (FP) PO SCH (22:55)
[2019-04-08] MEDS: chlordiazePOXIDE HCL 25 MG CAPSULE PO SCH ×4 (05:53→22:09)
[2019-04-08] MEDS: metFORMIN HCL 500 MG TABLET (FP) PO SCH ×2 (07:19→17:03)
[2019-04-08] MEDS: INSULIN SLIDING SCALE (NOVOLOG) 1 VIAL SQ SCH ×4 (07:20→22:09)
[2019-04-08] MEDS: amLODIPine BESYLATE 10 MG TABLET (FP) PO SCH (10:18)
[2019-04-08] MEDS: PRENATAL VITAMINS W/ FOLIC ACID TABLET (FP) PO SCH (10:18)
[2019-04-08] MEDS: LISINOPRIL 20 MG TABLET (FP) PO SCH (10:18)
[2019-04-08 10:46] LABS: HEMATOCRIT 41.7 % (35.4-49); HEMOGLOBIN 14.2 GM/dL (11.7-16.9); MCH 31.5 pg (25.7-33.7); MEAN CELL VOLUME 92.7 fl (80-96); MEAN PLT VOLUME 9.3 fl (7.5-11.1); PLATELET COUNT 214 K/MM3 (134-434); RDW 13.7 % (11.9-15.9); WHITE BLOOD COUNT 6.3 K/mm3 (4.0-10.0)
[2019-04-08 10:49] LABS: ALBUMIN 3.3 g/dl (3.4-5.0); BILIRUBIN,TOTAL 0.4 mg/dL (0.2-1); BLOOD UREA NITROGEN 21.2 mg/dL (7-18); CALCIUM 8.8 mg/dL (8.5-10.1); CREATININE 1.4 mg/dL (0.55-1.3); POTASSIUM 4.5 mmol/L (3.5-5.1); TOT PROT 6.5 g/dl (6.4-8.2)
[2019-04-08 11:10] LABS: PH,URINE 5.5 (5.0-8.0); URINE APPEARANCE CLEAR; URINE BILIRUBIN NEGATIVE (NEGATIVE); URINE COLOR YELLOW; URINE GLUCOSE (UA) 3+ (NEGATIVE); URINE KETONE NEGATIVE (NEGATIVE); URINE LEUK ESTERASE NEGATIVE (NEGATIVE); URINE NITRITE NEGATIVE (NEGATIVE); URINE PROTEIN NEGATIVE (NEGATIVE); URINE UROBILINOGEN 0.2 mg/dL (0.2-1.0)
--- NOTE | 2019-04-08 12:02 | PN ---
S CIWA - CIWA Score Nausea/Vomitin Muscle Tremors: 2 Anxiety: 3 Agitation: 2 Paroxysmal Sweats: No Perspiration Orientation: 0-Oriented Tacttile Disturbances: 0-None Auditory Disturbances: 0-None Visual Disturbances: 1-Very Mild Sensitivity Headache: 1-Very Mild CIWA-Ar Total Score: 11 S Progress Note (SOAP) Subjective: ANXIOUS POOR SLEEP SHAKINESS Objective: 04/08/19 11:59 Laboratory Tests 04/07/19 04/07/19 04/07/19 07:50 19:06 20:57 WBC RBC Hgb Hct MCV MCH MCHC RDW Plt Count MPV Sodium Potassium Chloride Carbon Dioxide Anion Gap BUN Creatinine Est GFR (CKD-EPI)AfAm Est GFR (CKD-EPI)NonAf POC Glucometer 402 349 Random Glucose Calcium Total Bilirubin AST ALT Alkaline Phosphatase Total Protein Albumin Urine Color Yellow Urine Appearance Clear Urine pH 5.5 Ur Specific [place] 1.017 Urine Protein Negative Urine Glucose (UA) 3+ H Urine Ketones Negative Urine Blood Negative Urine Nitrite Negative Urine Bilirubin Negative Urine Urobilinogen 0.2 Ur Leukocyte Esterase Negative 04/08/19 04/08/19 04/08/19 05:52 08:00 08:00 WBC 6.3 RBC 4.50 Hgb 14.2 Hct 41.7 MCV 92.7 MCH 31.5 MCHC 34.0 RDW 13.7 Plt Count 214 D MPV 9.3 Sodium 139 Potassium 4.5 Chloride 108 H Carbon Dioxide 22 Anion Gap 9 BUN 21.2 H Creatinine 1.4 H Est GFR (CKD-EPI)AfAm 69.34 Est GFR (CKD-EPI)NonAf 59.83 POC Glucometer 147 Random Glucose 145 H Calcium 8.8 Total Bilirubin 0.4 AST 22 ALT 26 Alkaline Phosphatase 94 Total Protein 6.5 Albumin 3.3 L Urine Color Urine Appearance Urine pH Ur Specific [place] Urine Protein Urine Glucose (UA) Urine Ketones Urine Blood Urine Nitrite Urine Bilirubin Urine Urobilinogen Ur Leukocyte Esterase Vital Signs - 24 hr 04/07/19 04/07/19 04/08/19 17:04 21:52 00:31 Temperature 98.6 F 98.3 F Pulse Rate 101 H 101 H Respiratory 18 18 18 Rate Blood Pressure 138/86 119/78 04/08/19 04/08/19 04/08/19 03:30 06:25 09:16 Temperature 97.9 F 97.2 F L Pulse Rate 87 91 H Respiratory 18 18 20 Rate Blood Pressure 132/80 147/96 ALERT AMBULATING ORIENTED Assessment: 04/08/19 12:00 ACUTE WITHDRAWAL 04/08/19 12:00 HYPERGLYCEMIA 04/08/19 12:00 RENAL INSUFFICIENCY Plan: CONTINUE DETOX PROTOCOL GENTLE HYDRATION FU RENAL FXN OUTPT CONT GLYCEMIC CTRL AND MONITORING
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
[2019-04-08] MEDS: THIAMINE HCL 100 MG TABLET (FP) PO SCH (22:09)
[2019-04-09] MEDS: chlordiazePOXIDE HCL 25 MG CAPSULE PO SCH ×3 (06:11→17:18)
[2019-04-09] MEDS: metFORMIN HCL 500 MG TABLET (FP) PO SCH ×2 (06:11→17:18)
[2019-04-09] MEDS ORDERED: INSULIN SLIDING SCALE (NOVOLOG) 1 VIAL SQ ONE (06:14)
[2019-04-09] MEDS: INSULIN SLIDING SCALE (NOVOLOG) 1 VIAL SQ SCH ×4 (06:14→21:39)
[2019-04-09] MEDS: SERTRALINE HCL 50 MG TABLET (FP) PO SCH (10:35)
[2019-04-09] MEDS: PRENATAL VITAMINS W/ FOLIC ACID TABLET (FP) PO SCH (10:35)
[2019-04-09] MEDS: LISINOPRIL 20 MG TABLET (FP) PO SCH (10:35)
[2019-04-09] MEDS: amLODIPine BESYLATE 10 MG TABLET (FP) PO SCH (10:35)
[2019-04-09] MEDS: ARIPiprazole 5 MG TABLET (FP) PO SCH (11:46)
--- NOTE | 2019-04-09 14:43 | PN ---
S CIWA - CIWA Score Nausea/Vomitin-No Nausea/No Vomiting Muscle Tremors: None Anxiety: 4-Mod. Anxious/Guarded Agitation: 1-Slight > Activity Paroxysmal Sweats: 3 Orientation: 0-Oriented Tacttile Disturbances: 1-Very Mild Itch/Numbness Auditory Disturbances: 1-Very Mild Visual Disturbances: 0-None Headache: 0-None Present CIWA-Ar Total Score: 10 BHS Progress Note (SOAP) Subjective: Anxious, Interrupted Sleep, Sweating. Objective: PATIENT A & O X 3, OBSERVED AMBULATING ON UNIT UNASSISTED. IN NO ACUTE DISTRESS. 04/09/19 14:40 Vital Signs Temperature 97.1 F L 04/09/19 13:18 Pulse Rate 96 H 04/09/19 13:18 Respiratory Rate 18 04/09/19 13:18 Blood Pressure 132/91 04/09/19 13:18 O2 Sat by Pulse Oximetry (%) Laboratory Tests 04/07/19 04/07/19 04/07/19 07:50 19:06 20:57 WBC RBC Hgb Hct MCV MCH MCHC RDW Plt Count MPV Sodium Potassium Chloride Carbon Dioxide Anion Gap BUN Creatinine Est GFR (CKD-EPI)AfAm Est GFR (CKD-EPI)NonAf POC Glucometer 402 349 Random Glucose Calcium Total Bilirubin AST ALT Alkaline Phosphatase Total Protein Albumin Urine Color Yellow Urine Appearance Clear Urine pH 5.5 Ur Specific [place] 1.017 Urine Protein Negative Urine Glucose (UA) 3+ H Urine Ketones Negative Urine Blood Negative Urine Nitrite Negative Urine Bilirubin Negative Urine Urobilinogen 0.2 Ur Leukocyte Esterase Negative RPR Titer 04/08/19 04/08/19 04/08/19 05:52 08:00 08:00 WBC 6.3 RBC 4.50 Hgb 14.2 Hct 41.7 MCV 92.7 MCH 31.5 MCHC 34.0 RDW 13.7 Plt Count 214 D MPV 9.3 Sodium 139 Potassium 4.5 Chloride 108 H Carbon Dioxide 22 Anion Gap 9 BUN 21.2 H Creatinine 1.4 H Est GFR (CKD-EPI)AfAm 69.34 Est GFR (CKD-EPI)NonAf 59.83 POC Glucometer 147 Random Glucose 145 H Calcium 8.8 Total Bilirubin 0.4 AST 22 ALT 26 Alkaline Phosphatase 94 Total Protein 6.5 Albumin 3.3 L Urine Color Urine Appearance Urine pH Ur Specific [place] Urine Protein Urine Glucose (UA) Urine Ketones Urine Blood Urine Nitrite Urine Bilirubin Urine Urobilinogen Ur Leukocyte Esterase RPR Titer 04/08/19 04/08/19 04/08/19 08:00 11:57 16:13 WBC RBC Hgb Hct MCV MCH MCHC RDW Plt Count MPV Sodium Potassium Chloride Carbon Dioxide Anion Gap BUN Creatinine Est GFR (CKD-EPI)AfAm Est GFR (CKD-EPI)NonAf POC Glucometer 312 249 Random Glucose Calcium Total Bilirubin AST ALT Alkaline Phosphatase Total Protein Albumin Urine Color Urine Appearance Urine pH Ur Specific [place] Urine Protein Urine Glucose (UA) Urine Ketones Urine Blood Urine Nitrite Urine Bilirubin Urine Urobilinogen Ur Leukocyte Esterase RPR Titer Nonreactive 04/08/19 04/09/19 04/09/19 20:28 06:10 11:35 WBC RBC Hgb Hct MCV MCH MCHC RDW Plt Count MPV Sodium Potassium Chloride Carbon Dioxide Anion Gap BUN Creatinine Est GFR (CKD-EPI)AfAm Est GFR (CKD-EPI)NonAf POC Glucometer 282 224 232 Random Glucose Calcium Total Bilirubin AST ALT Alkaline Phosphatase Total Protein Albumin Urine Color Urine Appearance Urine pH Ur Specific [place] Urine Protein Urine Glucose (UA) Urine Ketones Urine Blood Urine Nitrite Urine Bilirubin Urine Urobilinogen Ur Leukocyte Esterase RPR Titer LABS NOTED. Assessment: 04/09/19 14:42 WITHDRAWAL SYMPTOMS. AZOTEMIA. HYPERGLYCEMIA. Plan: CONTINUE DETOX. INCREASE DAILY PO WATER INTAKE. D/C MAGNESIUM-CONTAINING MEDS. FOR ABNORMAL ADMISSION RENAL LAB VALUES.
[2019-04-09] MEDS ORDERED: PANTOPRAZOLE 20 MG TABLET (FP) PO ONE (17:15)
[2019-04-09] MEDS ORDERED: MAG HYDROX/AL HYDROX/SIMETH 30 ML UNIT-DOSE CUP PO ONE (21:43)
[2019-04-09] MEDS: chlordiazePOXIDE HCL 10 MG CAPSULE PO SCH (22:28)
[2019-04-09] MEDS: THIAMINE HCL 100 MG TABLET (FP) PO SCH (22:28)
[2019-04-09] MEDS ORDERED: chlordiazePOXIDE HCL 10 MG CAPSULE PO PRN (23:00)
[2019-04-09] MEDS: MELATONIN 5 MG TABLETS PO PRN (23:31)
[2019-04-09] MEDS: hydrOXYzine PAMOATE 25 MG CAPSULE (FP) PO PRN (23:31)
[2019-04-09] MEDS: METHOCARBAMOL 500 MG TABLET PO PRN (23:31)
[2019-04-10] MEDS ORDERED: INSULIN SLIDING SCALE (NOVOLOG) 1 VIAL SQ ONE (06:41)
[2019-04-10] MEDS: chlordiazePOXIDE HCL 10 MG CAPSULE PO SCH ×3 (06:43→16:50)
[2019-04-10] MEDS: metFORMIN HCL 500 MG TABLET (FP) PO SCH ×2 (06:44→16:50)
[2019-04-10] MEDS: INSULIN SLIDING SCALE (NOVOLOG) 1 VIAL SQ SCH ×4 (06:44→22:23)
[2019-04-10] MEDS ORDERED: PANTOPRAZOLE 20 MG TABLET (FP) PO SCH (10:00)
[2019-04-10] MEDS: LISINOPRIL 20 MG TABLET (FP) PO SCH (10:16)
[2019-04-10] MEDS: SERTRALINE HCL 50 MG TABLET (FP) PO SCH (10:16)
[2019-04-10] MEDS: amLODIPine BESYLATE 10 MG TABLET (FP) PO SCH (10:16)
[2019-04-10] MEDS: PRENATAL VITAMINS W/ FOLIC ACID TABLET (FP) PO SCH (10:16)
[2019-04-10] MEDS: ARIPiprazole 5 MG TABLET (FP) PO SCH (10:17)
--- NOTE | 2019-04-10 13:41 | PN ---
S CIWA - CIWA Score Nausea/Vomitin-No Nausea/No Vomiting Muscle Tremors: None Anxiety: 3 Agitation: 0-Normal Activity Paroxysmal Sweats: 2 Orientation: 0-Oriented Tacttile Disturbances: 1-Very Mild Itch/Numbness Auditory Disturbances: 0-None Visual Disturbances: 1-Very Mild Sensitivity Headache: 0-None Present CIWA-Ar Total Score: 7 BHS Progress Note (SOAP) Subjective: Fatigue, Anxious. Objective: PATIENT A & O X 3, OBSERVED AMBULATING ON UNIT UNASSISTED. IN NO ACUTE DISTRESS. 04/10/19 13:43 Vital Signs Temperature 97.6 F 04/10/19 13:15 Pulse Rate 98 H 04/10/19 13:15 Respiratory Rate 18 04/10/19 13:15 Blood Pressure 141/89 04/10/19 13:15 O2 Sat by Pulse Oximetry (%) Laboratory Tests 04/07/19 04/07/19 04/07/19 07:50 19:06 20:57 WBC RBC Hgb Hct MCV MCH MCHC RDW Plt Count MPV Sodium Potassium Chloride Carbon Dioxide Anion Gap BUN Creatinine Est GFR (CKD-EPI)AfAm Est GFR (CKD-EPI)NonAf POC Glucometer 402 349 Random Glucose Calcium Total Bilirubin AST ALT Alkaline Phosphatase Total Protein Albumin Urine Color Yellow Urine Appearance Clear Urine pH 5.5 Ur Specific [place] 1.017 Urine Protein Negative Urine Glucose (UA) 3+ H Urine Ketones Negative Urine Blood Negative Urine Nitrite Negative Urine Bilirubin Negative Urine Urobilinogen 0.2 Ur Leukocyte Esterase Negative RPR Titer 04/08/19 04/08/19 04/08/19 05:52 08:00 08:00 WBC 6.3 RBC 4.50 Hgb 14.2 Hct 41.7 MCV 92.7 MCH 31.5 MCHC 34.0 RDW 13.7 Plt Count 214 D MPV 9.3 Sodium 139 Potassium 4.5 Chloride 108 H Carbon Dioxide 22 Anion Gap 9 BUN 21.2 H Creatinine 1.4 H Est GFR (CKD-EPI)AfAm 69.34 Est GFR (CKD-EPI)NonAf 59.83 POC Glucometer 147 Random Glucose 145 H Calcium 8.8 Total Bilirubin 0.4 AST 22 ALT 26 Alkaline Phosphatase 94 Total Protein 6.5 Albumin 3.3 L Urine Color Urine Appearance Urine pH Ur Specific [place] Urine Protein Urine Glucose (UA) Urine Ketones Urine Blood Urine Nitrite Urine Bilirubin Urine Urobilinogen Ur Leukocyte Esterase RPR Titer 04/08/19 04/08/19 04/08/19 08:00 11:57 16:13 WBC RBC Hgb Hct MCV MCH MCHC RDW Plt Count MPV Sodium Potassium Chloride Carbon Dioxide Anion Gap BUN Creatinine Est GFR (CKD-EPI)AfAm Est GFR (CKD-EPI)NonAf POC Glucometer 312 249 Random Glucose Calcium Total Bilirubin AST ALT Alkaline Phosphatase Total Protein Albumin Urine Color Urine Appearance Urine pH Ur Specific [place] Urine Protein Urine Glucose (UA) Urine Ketones Urine Blood Urine Nitrite Urine Bilirubin Urine Urobilinogen Ur Leukocyte Esterase RPR Titer Nonreactive 04/08/19 04/09/19 04/09/19 20:28 06:10 11:35 WBC RBC Hgb Hct MCV MCH MCHC RDW Plt Count MPV Sodium Potassium Chloride Carbon Dioxide Anion Gap BUN Creatinine Est GFR (CKD-EPI)AfAm Est GFR (CKD-EPI)NonAf POC Glucometer 282 224 232 Random Glucose Calcium Total Bilirubin AST ALT Alkaline Phosphatase Total Protein Albumin Urine Color Urine Appearance Urine pH Ur Specific [place] Urine Protein Urine Glucose (UA) Urine Ketones Urine Blood Urine Nitrite Urine Bilirubin Urine Urobilinogen Ur Leukocyte Esterase RPR Titer 04/09/19 04/09/19 04/10/19 16:16 21:15 06:38 WBC RBC Hgb Hct MCV MCH MCHC RDW Plt Count MPV Sodium Potassium Chloride Carbon Dioxide Anion Gap BUN Creatinine Est GFR (CKD-EPI)AfAm Est GFR (CKD-EPI)NonAf POC Glucometer 341 296 228 Random Glucose Calcium Total Bilirubin AST ALT Alkaline Phosphatase Total Protein Albumin Urine Color Urine Appearance Urine pH Ur Specific [place] Urine Protein Urine Glucose (UA) Urine Ketones Urine Blood Urine Nitrite Urine Bilirubin Urine Urobilinogen Ur Leukocyte Esterase RPR Titer 04/10/19 11:20 WBC RBC Hgb Hct MCV MCH MCHC RDW Plt Count MPV Sodium Potassium Chloride Carbon Dioxide Anion Gap BUN Creatinine Est GFR (CKD-EPI)AfAm Est GFR (CKD-EPI)NonAf POC Glucometer 247 Random Glucose Calcium Total Bilirubin AST ALT Alkaline Phosphatase Total Protein Albumin Urine Color Urine Appearance Urine pH Ur Specific [place] Urine Protein Urine Glucose (UA) Urine Ketones Urine Blood Urine Nitrite Urine Bilirubin Urine Urobilinogen Ur Leukocyte Esterase RPR Titer LABS NOTED. Assessment: 04/10/19 13:43 WITHDRAWAL SYMPTOMS. Plan: CONTINUE DETOX. INCREASE DAILY PO WATER INTAKE.
[2019-04-10] MEDS: METHOCARBAMOL 500 MG TABLET PO PRN ×2 (17:13→23:15)
[2019-04-10] MEDS: THIAMINE HCL 100 MG TABLET (FP) PO SCH (22:21)
[2019-04-10] MEDS: hydrOXYzine PAMOATE 25 MG CAPSULE (FP) PO PRN (22:24)
[2019-04-10] MEDS ORDERED: chlordiazePOXIDE HCL 10 MG CAPSULE PO SCH (23:00)
[2019-04-10] MEDS: MELATONIN 5 MG TABLETS PO PRN (23:15)
[2019-04-11 06:02] VITALS: BP 124/82; PULSE 74; TEMP 97
[2019-04-11] MEDS ORDERED: INSULIN SLIDING SCALE (NOVOLOG) 1 VIAL SQ ONE (06:24)
[2019-04-11] MEDS: INSULIN SLIDING SCALE (NOVOLOG) 1 VIAL SQ SCH (06:31)
[2019-04-11] MEDS: metFORMIN HCL 500 MG TABLET (FP) PO SCH (06:31)
--- NOTE | 2019-04-11 16:54 | DS ---
[facility] Detox Discharge Summary Admission Date: 04/07/19 Discharge Date: 04/11/19 - History Present History: Alcohol Dependence, Cannabis Dependence, Cocaine Dependence, Opioid Dependence Additional Comments: PATIENT LEFT DETOX UNIT EARLY IN AM PRIOR TO TIME OF BLOGS MANAGER ON DETOX UNIT. THUS PRE- DISCHARGE MEDICAL ASSESSMENT (INCLUDING INQUIRY ABOUT DISCHARGE MEDICATION PRESCRIPTION) UNABLE TO BE DONE. PER AUTOMOTIVE WELDER Cornel DOW, PATIENT REFERRED TO THAT [facility] ([facility]) Pertinent Past History: history Of Seizures, Depression, HTN, Insomnia, Nicotine Dependence, History Of Personality Disorder, IDDM. - Physical Exam Results Vital Signs: Vital Signs Temperature 97 F L 04/11/19 06:02 Pulse Rate 74 04/11/19 06:02 Respiratory Rate 18 04/11/19 06:02 Blood Pressure 124/82 04/11/19 06:02 O2 Sat by Pulse Oximetry (%) Pertinent Admission Physical Exam Findings: WITHDRAWAL SYMPTOMS. Laboratory Tests 04/07/19 04/07/19 04/07/19 07:50 19:06 20:57 WBC RBC Hgb Hct MCV MCH MCHC RDW Plt Count MPV Sodium Potassium Chloride Carbon Dioxide Anion Gap BUN Creatinine Est GFR (CKD-EPI)AfAm Est GFR (CKD-EPI)NonAf POC Glucometer [phone] Random Glucose Calcium Total Bilirubin AST ALT Alkaline Phosphatase Total Protein Albumin Urine Color Yellow Urine Appearance Clear Urine pH 5.5 Ur Specific [place] 1.017 Urine Protein Negative Urine Glucose (UA) 3+ H Urine Ketones Negative Urine Blood Negative Urine Nitrite Negative Urine Bilirubin Negative Urine Urobilinogen 0.2 Ur Leukocyte Esterase Negative RPR Titer 04/08/19 04/08/19 04/08/19 05:52 08:00 08:00 WBC 6.3 RBC 4.50 Hgb 14.2 Hct 41.7 MCV 92.7 MCH 31.5 MCHC 34.0 RDW 13.7 Plt Count 214 D MPV 9.3 Sodium 139 Potassium 4.5 Chloride 108 H Carbon Dioxide 22 Anion Gap 9 BUN 21.2 H Creatinine 1.4 H Est GFR (CKD-EPI)AfAm 69.34 Est GFR (CKD-EPI)NonAf 59.83 POC Glucometer 147 Random Glucose 145 H Calcium 8.8 Total Bilirubin 0.4 AST 22 ALT 26 Alkaline Phosphatase 94 Total Protein 6.5 Albumin 3.3 L Urine Color Urine Appearance Urine pH Ur Specific [place] Urine Protein Urine Glucose (UA) Urine Ketones Urine Blood Urine Nitrite Urine Bilirubin Urine Urobilinogen Ur Leukocyte Esterase RPR Titer 04/08/19 04/08/19 04/08/19 08:00 11:57 16:13 WBC RBC Hgb Hct MCV MCH MCHC RDW Plt Count MPV Sodium Potassium Chloride Carbon Dioxide Anion Gap BUN Creatinine Est GFR (CKD-EPI)AfAm Est GFR (CKD-EPI)NonAf POC Glucometer [phone] Random Glucose Calcium Total Bilirubin AST ALT Alkaline Phosphatase Total Protein Albumin Urine Color Urine Appearance Urine pH Ur Specific [place] Urine Protein Urine Glucose (UA) Urine Ketones Urine Blood Urine Nitrite Urine Bilirubin Urine Urobilinogen Ur Leukocyte Esterase RPR Titer Nonreactive 04/08/19 04/09/19 04/09/19 20:28 06:10 11:35 WBC RBC Hgb Hct MCV MCH MCHC RDW Plt Count MPV Sodium Potassium Chloride Carbon Dioxide Anion Gap BUN Creatinine Est GFR (CKD-EPI)AfAm Est GFR (CKD-EPI)NonAf POC Glucometer [phone] Random Glucose Calcium Total Bilirubin AST ALT Alkaline Phosphatase Total Protein Albumin Urine Color Urine Appearance Urine pH Ur Specific [place] Urine Protein Urine Glucose (UA) Urine Ketones Urine Blood Urine Nitrite Urine Bilirubin Urine Urobilinogen Ur Leukocyte Esterase RPR Titer 04/09/19 04/09/19 04/10/19 16:16 21:15 06:38 WBC RBC Hgb Hct MCV MCH MCHC RDW Plt Count MPV Sodium Potassium Chloride Carbon Dioxide Anion Gap BUN Creatinine Est GFR (CKD-EPI)AfAm Est GFR (CKD-EPI)NonAf POC Glucometer [phone] Random Glucose Calcium Total Bilirubin AST ALT Alkaline Phosphatase Total Protein Albumin Urine Color Urine Appearance Urine pH Ur Specific [place] Urine Protein Urine Glucose (UA) Urine Ketones Urine Blood Urine Nitrite Urine Bilirubin Urine Urobilinogen Ur Leukocyte Esterase RPR Titer 04/10/19 04/10/19 04/10/19 11:20 16:24 21:09 WBC RBC Hgb Hct MCV MCH MCHC RDW Plt Count MPV Sodium Potassium Chloride Carbon Dioxide Anion Gap BUN Creatinine Est GFR (CKD-EPI)AfAm Est GFR (CKD-EPI)NonAf POC Glucometer [phone] Random Glucose Calcium Total Bilirubin AST ALT Alkaline Phosphatase Total Protein Albumin Urine Color Urine Appearance Urine pH Ur Specific [place] Urine Protein Urine Glucose (UA) Urine Ketones Urine Blood Urine Nitrite Urine Bilirubin Urine Urobilinogen Ur Leukocyte Esterase RPR Titer 04/11/19 06:28 WBC RBC Hgb Hct MCV MCH MCHC RDW Plt Count MPV Sodium Potassium Chloride Carbon Dioxide Anion Gap BUN Creatinine Est GFR (CKD-EPI)AfAm Est GFR (CKD-EPI)NonAf POC Glucometer 193 Random Glucose Calcium Total Bilirubin AST ALT Alkaline Phosphatase Total Protein Albumin Urine Color Urine Appearance Urine pH Ur Specific [place] Urine Protein Urine Glucose (UA) Urine Ketones Urine Blood Urine Nitrite Urine Bilirubin Urine Urobilinogen Ur Leukocyte Esterase RPR Titer LABS NOTED. - Treatment Hospital Course: Detox Protocol Followed, Detoxed Safely, Responded well, Discharged Condition Good Patient has Accepted a Rehab Referral to: PT. GOING TO THE [facility] ([place], [place]). - Medication Discharge Medications: Ambulatory Orders Amlodipine Besylate [Norvasc -] 10 mg PO DAILY #30 tablet 05/25/17 Insulin (Levemir) [Levemir Vial] 20 units SQ HS #1 ml 05/25/17 metFORMIN HCL [Glucophage -] 500 mg PO BID@0700,1630 #60 tablet 05/25/17 Insulin (Novolog 70/30) [Novolog Mix 70/30 Vial -] 20 units SQ BID 04/07/19 Lisinopril 20 mg PO DAILY 04/07/19 Esomeprazole Magnesium [Nexium 24Hr] 40 mg PO DAILY 04/09/19 - Diagnosis (1) Alcohol dependence with uncomplicated withdrawal Status: Acute (2) Cannabis dependence Status: Acute (3) Cocaine dependence Status: Acute Qualifiers: Substance use status: in withdrawal Qualified Code(s): F14.23 - Cocaine dependence with withdrawal (4) Insomnia Status: Acute Qualifiers: Insomnia type: unspecified Qualified Code(s): G47.00 - Insomnia, unspecified (5) Nicotine dependence Status: Acute Qualifiers: Nicotine product type: cigarettes Substance use status: in withdrawal Qualified Code(s): F17.213 - Nicotine dependence, cigarettes, with withdrawal (6) Opioid dependence with withdrawal Status: Acute (7) Personality disorder, unspecified Status: Acute (8) Substance induced mood disorder Status: Acute (9) Essential hypertension Status: Chronic (10) IDDM (insulin dependent diabetes mellitus) Status: Chronic - AMA Did Patient Leave Against Medical Advice: No
== END 2019-04-11 08:30 | disposition home or self-care (01) | DRG 773 ==
LOC: YASAS 14:51 → Y3N 18:42
PROVIDERS: ADMIT Surgery; ATTEND Surgery
PROC: HZ2ZZZZ Detoxification Services for Substance Abuse Treatment (ICD-10-PCS; principal; 2019-04-07)
DX: F11.23 Opioid dependence with withdrawal (principal); F10.230 Alcohol dependence with withdrawal, uncomplicated; F14.20 Cocaine dependence, uncomplicated; F12.20 Cannabis dependence, uncomplicated; F17.213 Nicotine dependence, cigarettes, with withdrawal; F60.9 Personality disorder, unspecified; F19.24 Other psychoactive substance dependence with psychoactive substance-induced mood disorder; I10 Essential (primary) hypertension; G47.00 Insomnia, unspecified; E11.65 Type 2 diabetes mellitus with hyperglycemia; R79.89 Other specified abnormal findings of blood chemistry; N28.9 Disorder of kidney and ureter, unspecified; Z96.642 Presence of left artificial hip joint; Z96.652 Presence of left artificial knee joint; Z86.69 Personal history of other diseases of the nervous system and sense organs; Z79.4 Long term (current) use of insulin; Z91.14 Patient's other noncompliance with medication regimen
CPT/HCPCS: 36415; 80053; 81003; 82962; 85027; 86593

== ENCOUNTER 2020-12-05 14:27 | Inpatient (IN) | payer OTHER ==
[2020-12-05 15:12] VITALS: BMI 26.0
[2020-12-05] MEDS ORDERED: BISMUTH SUBSALICYLATE 524 MG/30 ML UD PO PRN (15:52)
[2020-12-05] MEDS ORDERED: NICOTINE POLACRILEX 2 MG GUM BUC PRN (15:52)
[2020-12-05] MEDS ORDERED: ONDANSETRON *ODT* 4 MG TABLET SL PRN (15:52)
[2020-12-05] MEDS ORDERED: MAGNESIUM HYDROX 2400MG/30ML ORAL SUSPENSION 30 ML CUP PO PRN (15:52)
[2020-12-05] MEDS ORDERED: cloNIDine HCL 0.1 MG TABLET PO PRN (15:52)
[2020-12-05] MEDS ORDERED: ACETAMINOPHEN 325 MG TABLET (FP) PO PRN ×2 (15:52)
[2020-12-05] MEDS ORDERED: MAGNESIUM CITRATE 300 ML BOTTLE PO PRN (15:52)
[2020-12-05] MEDS ORDERED: LORazepam 1 MG TABLET PO PRN (15:52)
[2020-12-05] MEDS ORDERED: MENTHOL/PHENOL 1 EACH UD MM PRN (15:52)
[2020-12-05] MEDS ORDERED: MAG HYDROX/AL HYDROX/SIMETH 30 ML UNIT-DOSE CUP PO PRN (15:52)
[2020-12-05] MEDS ORDERED: IBUPROFEN 400 MG TABLET (FP) PO PRN (15:52)
[2020-12-05] MEDS ORDERED: INSULIN (NOVOLOG) ASPART 100 UNITS/ML 10ML VIAL SQ ONE (16:03)
[2020-12-05] MEDS ORDERED: METHADONE HCL 10 MG TABLET (FOR DETOX USE ONLY) PO ONE (17:00)
[2020-12-05] MEDS: amLODIPine BESYLATE 10 MG TABLET (FP) PO SCH (18:04)
[2020-12-05] MEDS: hydrOXYzine PAMOATE 25 MG CAPSULE (FP) PO SCH ×2 (18:04→22:55)
[2020-12-05] MEDS: INSULIN SLIDING SCALE (NOVOLOG) 1 VIAL SQ SCH ×2 (18:15→22:55)
[2020-12-05] MEDS: NICOTINE 7 MG/24 HOURS TOPICAL PATCH TD SCH (18:16)
[2020-12-05] MEDS: INSULIN (LEVEMIR) 100 UNITS/ML UNITS SQ SCH (22:54)
[2020-12-05] MEDS: BACITRACIN 0.9 GM PACKET TP SCH (22:54)
[2020-12-05] MEDS: MELATONIN 5 MG TABLETS PO SCH (22:54)
[2020-12-05] MEDS: THIAMINE HCL 100 MG TABLET (FP) PO SCH (22:55)
[2020-12-05] MEDS: LORazepam 2 MG TABLET PO SCH (22:56)
[2020-12-06] MEDS: LORazepam 2 MG TABLET PO SCH ×4 (05:50→22:50)
[2020-12-06] MEDS: hydrOXYzine PAMOATE 25 MG CAPSULE (FP) PO SCH ×5 (05:51→22:47)
[2020-12-06] MEDS: INSULIN SLIDING SCALE (NOVOLOG) 1 VIAL SQ SCH ×4 (08:22→22:51)
[2020-12-06] MEDS ORDERED: METHADONE HCL 5 MG TABLET (FOR DETOX USE ONLY) ONE (08:58)
[2020-12-06] MEDS ORDERED: METHADONE HCL 10 MG TABLET (FOR DETOX USE ONLY) ONE (08:59)
[2020-12-06] MEDS ORDERED: METHADONE (DETOX) 20 MG, METHADONE (DETOX) 5 MG PO ONE (10:00)
[2020-12-06] MEDS: BACITRACIN 0.9 GM PACKET TP SCH ×2 (11:54→22:45)
[2020-12-06] MEDS: PRENATAL VITAMINS W/ FOLIC ACID TABLET (FP) PO SCH (11:55)
[2020-12-06] MEDS: NICOTINE 7 MG/24 HOURS TOPICAL PATCH TD SCH (11:55)
[2020-12-06] MEDS: amLODIPine BESYLATE 10 MG TABLET (FP) PO SCH (11:55)
[2020-12-06] MEDS: LISINOPRIL 20 MG TABLET PO SCH (11:56)
[2020-12-06 13:11] LABS: POTASSIUM 4.3 mmol/L (3.5-5.1)
[2020-12-06 13:12] LABS: HEMATOCRIT 35.6 % (35.4-49); HEMOGLOBIN 11.7 GM/dL (11.7-16.9); MCHC 32.8 g/dl (32.0-35.9); MEAN CELL VOLUME 85.5 fl (80-96); PLATELET COUNT 269 K/MM3 (134-434); RBC 4.16 M/mm3 (4.00-5.60); RDW 16.5 % (11.9-15.9); WHITE BLOOD COUNT 6.2 K/mm3 (4.0-10.0)
[2020-12-06 13:17] LABS: ALBUMIN 2.8 g/dl (3.4-5.0); BLOOD UREA NITROGEN 14.8 mg/dL (7-18); CALCIUM 8.5 mg/dL (8.5-10.1)
[2020-12-06 13:21] LABS: BILIRUBIN,TOTAL 0.7 mg/dL (0.2-1); CREATININE 1.4 mg/dL (0.55-1.3); TOT PROT 5.9 g/dl (6.4-8.2)
[2020-12-06] MEDS: METHOCARBAMOL 500 MG TABLET PO PRN ×2 (18:15→22:44)
[2020-12-06] MEDS: THIAMINE HCL 100 MG TABLET (FP) PO SCH (22:44)
[2020-12-06] MEDS: MELATONIN 5 MG TABLETS PO SCH (22:44)
[2020-12-06] MEDS: INSULIN (LEVEMIR) 100 UNITS/ML UNITS SQ SCH (22:47)
[2020-12-07] MEDS: LORazepam 1 MG TABLET PO SCH ×4 (06:05→22:19)
[2020-12-07] MEDS: hydrOXYzine PAMOATE 25 MG CAPSULE (FP) PO SCH ×5 (06:06→22:19)
[2020-12-07] MEDS: INSULIN SLIDING SCALE (NOVOLOG) 1 VIAL SQ SCH ×4 (07:32→22:52)
[2020-12-07] MEDS ORDERED: METHADONE HCL 10 MG TABLET (FOR DETOX USE ONLY) PO ONE (10:00)
[2020-12-07] MEDS: BACITRACIN 0.9 GM PACKET TP SCH ×2 (10:51→22:19)
[2020-12-07] MEDS: amLODIPine BESYLATE 10 MG TABLET (FP) PO SCH (10:52)
[2020-12-07] MEDS: LISINOPRIL 20 MG TABLET PO SCH (10:52)
[2020-12-07] MEDS: PRENATAL VITAMINS W/ FOLIC ACID TABLET (FP) PO SCH (10:52)
[2020-12-07] MEDS: NICOTINE 7 MG/24 HOURS TOPICAL PATCH TD SCH (10:52)
[2020-12-07] MEDS: THIAMINE HCL 100 MG TABLET (FP) PO SCH (22:18)
[2020-12-07] MEDS: MELATONIN 5 MG TABLETS PO SCH (22:19)
[2020-12-07] MEDS: INSULIN (LEVEMIR) 100 UNITS/ML UNITS SQ SCH (22:51)
[2020-12-07] MEDS ORDERED: INSULIN (NOVOLOG) ASPART 100 UNITS/ML 10ML VIAL ONE (23:07)
[2020-12-08] MEDS ORDERED: LORazepam 0.5 MG TABLET PO PRN
[2020-12-08] MEDS ORDERED: INSULIN (NOVOLOG) ASPART 100 UNITS/ML 10ML VIAL ONE ×3 (05:30→22:59)
[2020-12-08] MEDS: LORazepam 0.5 MG TABLET PO SCH ×4 (05:32→22:12)
[2020-12-08] MEDS: hydrOXYzine PAMOATE 25 MG CAPSULE (FP) PO SCH ×5 (05:33→22:12)
[2020-12-08] MEDS: INSULIN SLIDING SCALE (NOVOLOG) 1 VIAL SQ SCH ×4 (06:31→23:00)
[2020-12-08] MEDS ORDERED: METHADONE HCL 10 MG TABLET (FOR DETOX USE ONLY) ONE (08:40)
[2020-12-08] MEDS ORDERED: METHADONE HCL 5 MG TABLET (FOR DETOX USE ONLY) ONE (08:40)
[2020-12-08] MEDS: BACITRACIN 0.9 GM PACKET TP SCH ×2 (09:50→22:15)
[2020-12-08] MEDS ORDERED: METHADONE (DETOX) 10 MG, METHADONE (DETOX) 5 MG PO ONE (10:00)
[2020-12-08] MEDS: PRENATAL VITAMINS W/ FOLIC ACID TABLET (FP) PO SCH (10:23)
[2020-12-08] MEDS: LISINOPRIL 20 MG TABLET PO SCH (10:23)
[2020-12-08] MEDS: NICOTINE 7 MG/24 HOURS TOPICAL PATCH TD SCH (10:23)
[2020-12-08] MEDS: amLODIPine BESYLATE 10 MG TABLET (FP) PO SCH (10:23)
[2020-12-08] MEDS: metFORMIN HCL 500 MG TABLET (FP) PO SCH (17:22)
[2020-12-08] MEDS: MELATONIN 5 MG TABLETS PO SCH (22:12)
[2020-12-08] MEDS: THIAMINE HCL 100 MG TABLET (FP) PO SCH (22:12)
[2020-12-08] MEDS: INSULIN (LEVEMIR) 100 UNITS/ML UNITS SQ SCH (22:15)
[2020-12-09] MEDS ORDERED: LORazepam 0.5 MG TABLET PO ONE (05:00)
[2020-12-09] MEDS: metFORMIN HCL 500 MG TABLET (FP) PO SCH ×2 (06:09→17:59)
[2020-12-09] MEDS: hydrOXYzine PAMOATE 25 MG CAPSULE (FP) PO SCH ×5 (06:09→23:23)
[2020-12-09] MEDS: INSULIN SLIDING SCALE (NOVOLOG) 1 VIAL SQ SCH ×4 (07:00→23:22)
[2020-12-09] MEDS ORDERED: METHADONE HCL 10 MG TABLET (FOR DETOX USE ONLY) PO ONE (10:00)
[2020-12-09] MEDS: BACITRACIN 0.9 GM PACKET TP SCH ×2 (10:28→23:23)
[2020-12-09] MEDS: PRENATAL VITAMINS W/ FOLIC ACID TABLET (FP) PO SCH (10:28)
[2020-12-09] MEDS: amLODIPine BESYLATE 10 MG TABLET (FP) PO SCH (10:29)
[2020-12-09] MEDS: LISINOPRIL 20 MG TABLET PO SCH (10:29)
[2020-12-09] MEDS: NICOTINE 7 MG/24 HOURS TOPICAL PATCH TD SCH (10:29)
[2020-12-09] MEDS ORDERED: INSULIN (NOVOLOG) ASPART 100 UNITS/ML 10ML VIAL ONE ×2 (11:23→23:23)
[2020-12-09] MEDS: INSULIN (LEVEMIR) 100 UNITS/ML UNITS SQ SCH (23:22)
[2020-12-09] MEDS: MELATONIN 5 MG TABLETS PO SCH (23:22)
[2020-12-09] MEDS: THIAMINE HCL 100 MG TABLET (FP) PO SCH (23:23)
[2020-12-10] MEDS: hydrOXYzine PAMOATE 25 MG CAPSULE (FP) PO SCH ×2 (05:48→10:34)
[2020-12-10] MEDS ORDERED: METHADONE HCL 5 MG TABLET (FOR DETOX USE ONLY) PO ONE (06:00)
[2020-12-10] MEDS: metFORMIN HCL 500 MG TABLET (FP) PO SCH (06:16)
[2020-12-10] MEDS: INSULIN SLIDING SCALE (NOVOLOG) 1 VIAL SQ SCH (06:17)
[2020-12-10 09:52] VITALS: BP 138/71; PULSE 83; TEMP 97.3
[2020-12-10] MEDS ORDERED: PANTOPRAZOLE 40 MG TABLET PO SCH (10:00)
[2020-12-10] MEDS: BACITRACIN 0.9 GM PACKET TP SCH (10:33)
[2020-12-10] MEDS: LISINOPRIL 20 MG TABLET PO SCH (10:33)
[2020-12-10] MEDS: amLODIPine BESYLATE 10 MG TABLET (FP) PO SCH (10:33)
[2020-12-10] MEDS: NICOTINE 7 MG/24 HOURS TOPICAL PATCH TD SCH (10:33)
[2020-12-10] MEDS: PRENATAL VITAMINS W/ FOLIC ACID TABLET (FP) PO SCH (10:33)
== END 2020-12-10 10:37 | disposition home or self-care (01) | DRG 773 ==
LOC: YASAS 14:27 → Y6N 16:14
PROVIDERS: ADMIT Allergy & Immunology; ATTEND Allergy & Immunology
PROC: HZ2ZZZZ Detoxification Services for Substance Abuse Treatment (ICD-10-PCS; principal; 2020-12-05)
DX: F11.23 Opioid dependence with withdrawal (principal); F10.230 Alcohol dependence with withdrawal, uncomplicated; F14.20 Cocaine dependence, uncomplicated; F12.20 Cannabis dependence, uncomplicated; F17.210 Nicotine dependence, cigarettes, uncomplicated; F19.24 Other psychoactive substance dependence with psychoactive substance-induced mood disorder; F60.9 Personality disorder, unspecified; G47.00 Insomnia, unspecified; R79.89 Other specified abnormal findings of blood chemistry; Z96.643 Presence of artificial hip joint, bilateral; Z98.890 Other specified postprocedural states
CPT/HCPCS: 36415; 80053; 82962; 85027; 86780; 93005; 93010; C9803; U0003

== ENCOUNTER 2022-10-20 13:42 | Inpatient (IN) | payer OTHER ==
[2022-10-20 18:31] VITALS: BMI 21.2
[2022-10-20] MEDS ORDERED: BENZOCAINE/MENTHOL (CHLORASEPTIC ) LOZENGE MM PRN (18:58)
[2022-10-20] MEDS ORDERED: NALOXONE HCL 0.4 MG/ML VIAL IM PRN (18:58)
[2022-10-20] MEDS ORDERED: MAG HYDROX/AL HYDROX/SIMETH 30 ML UNIT-DOSE CUP PO PRN (18:58)
[2022-10-20] MEDS ORDERED: MAGNESIUM HYDROX 2400MG/30ML ORAL SUSPENSION 30 ML CUP PO PRN (18:58)
[2022-10-20] MEDS ORDERED: hydrOXYzine PAMOATE 25 MG CAPSULE (FP) PO PRN (18:58)
[2022-10-20] MEDS ORDERED: ACETAMINOPHEN 325 MG TABLET (FP) PO PRN ×2 (18:58)
[2022-10-20] MEDS ORDERED: P-EPHED 60MG/TRIPROLIDI 2.5MG TABLET PO PRN (18:58)
[2022-10-20] MEDS ORDERED: IBUPROFEN 400 MG TABLET (FP) PO PRN (18:58)
[2022-10-20] MEDS ORDERED: DICYCLOMINE HCL 10 MG CAPSULE PO PRN (18:58)
[2022-10-20] MEDS ORDERED: LOPERAMIDE HCL 2 MG CAPSULE PO PRN (18:58)
[2022-10-20] MEDS ORDERED: ONDANSETRON *ODT* 4 MG TABLET SL PRN (18:58)
[2022-10-20] MEDS ORDERED: NALOXONE HCL (KLOXXADO) 8 MG SPRAY NS PRN (18:58)
[2022-10-20] MEDS ORDERED: BISMUTH SUBSALICYLATE 524 MG/30 ML PO PRN (18:58)
[2022-10-20] MEDS ORDERED: POLYETHYLENE GLYCOL (HEALTHYLAX) 3350 17 GM PACKET PO PRN (18:58)
[2022-10-20] MEDS ORDERED: guaiFENesin 200 MG/10 ML 10 ML UNIT-DOSE CUPS PO PRN (18:58)
[2022-10-20] MEDS ORDERED: IBUPROFEN 600 MG TABLET (FP) PO PRN (18:58)
[2022-10-20] MEDS ORDERED: methaDONE HCL 10 MG TABLET (FOR DETOX USE ONLY) PO ONE ×2 (19:00→20:15)
[2022-10-20] MEDS: INSULIN SLIDING SCALE (NOVOLOG) 1 VIAL SQ SCH ×2 (20:16→23:01)
[2022-10-20] MEDS: cloNIDine HCL 0.1 MG TABLET PO PRN (20:33)
[2022-10-20] MEDS ORDERED: INSULIN (NOVOLOG) ASPART 100 UNITS/ML 10ML VIAL ONE (23:00)
[2022-10-20] MEDS: THIAMINE HCL 100 MG TABLET (FP) PO SCH (23:01)
[2022-10-21] MEDS: cloNIDine HCL 0.1 MG TABLET PO PRN (05:37)
[2022-10-21] MEDS: INSULIN SLIDING SCALE (NOVOLOG) 1 VIAL SQ SCH ×4 (06:44→23:03)
[2022-10-21] MEDS ORDERED: LISINOPRIL 20 MG TABLET PO SCH (10:00)
[2022-10-21 10:46] LABS: HEMOGLOBIN 10.4 GM/dL (11.7-16.9); MCH 27.6 pg (25.7-33.7); MCHC 32.5 g/dl (32.0-35.9); MEAN PLT VOLUME 7.7 fl (7.5-11.1); PLATELET COUNT 644 10^3/uL (134-434); RBC 3.76 M/mm3 (4.00-5.60)
[2022-10-21] MEDS: PRENATAL VITAMINS W/ FOLIC ACID TABLET (FP) PO SCH (10:54)
[2022-10-21] MEDS: amLODIPine BESYLATE 10 MG TABLET (FP) PO SCH (10:55)
[2022-10-21] MEDS: METHOCARBAMOL 500 MG TABLET PO PRN (10:55)
[2022-10-21 11:01] LABS: CALCIUM 8.3 mg/dL (8.5-10.1)
[2022-10-21 11:02] LABS: ALBUMIN 2.3 g/dl (3.4-5.0); BLOOD UREA NITROGEN 25.6 mg/dL (7-18)
[2022-10-21 11:05] LABS: CREATININE 1.9 mg/dL (0.55-1.3)
[2022-10-21 11:06] LABS: BILIRUBIN,TOTAL 0.2 mg/dL (0.2-1); TOT PROT 6.1 g/dl (6.4-8.2)
[2022-10-21] MEDS ORDERED: INSULIN (NOVOLOG) ASPART 100 UNITS/ML 10ML VIAL ONE ×3 (11:53→22:53)
[2022-10-21] MEDS: metFORMIN HCL 500 MG TABLET (FP) PO SCH (17:24)
[2022-10-21] MEDS: MELATONIN 5 MG TABLETS PO PRN (23:01)
[2022-10-21] MEDS: METOPROLOL TARTRATE 25 MG TABLET (FP) PO SCH (23:01)
[2022-10-21] MEDS: THIAMINE HCL 100 MG TABLET (FP) PO SCH (23:02)
[2022-10-21] MEDS: INSULIN (LEVEMIR) 100 UNITS/ML UNITS SQ SCH (23:03)
[2022-10-22] MEDS: INSULIN SLIDING SCALE (NOVOLOG) 1 VIAL SQ SCH ×4 (06:22→23:18)
[2022-10-22] MEDS: metFORMIN HCL 500 MG TABLET (FP) PO SCH ×2 (06:22→16:56)
[2022-10-22] MEDS ORDERED: methaDONE HCL 10 MG TABLET (FOR DETOX USE ONLY) PO ONE (10:00)
[2022-10-22] MEDS: PRENATAL VITAMINS W/ FOLIC ACID TABLET (FP) PO SCH (11:05)
[2022-10-22] MEDS: METOPROLOL TARTRATE 25 MG TABLET (FP) PO SCH ×2 (11:05→23:17)
[2022-10-22] MEDS: amLODIPine BESYLATE 10 MG TABLET (FP) PO SCH (11:05)
[2022-10-22] MEDS: METHOCARBAMOL 500 MG TABLET PO PRN (11:05)
[2022-10-22] MEDS ORDERED: SODIUM POLYSTYRENE SULFONATE 15 GM/60 ML BOTTLE PO ONE ×2 (11:07→23:03)
[2022-10-22 15:17] LABS: ALBUMIN 2.3 g/dl (3.4-5.0); BLOOD UREA NITROGEN 30.6 mg/dL (7-18); CREATININE 1.8 mg/dL (0.55-1.3)
[2022-10-22 15:18] LABS: BILIRUBIN,TOTAL 0.4 mg/dL (0.2-1); TOT PROT 5.9 g/dl (6.4-8.2)
[2022-10-22 15:20] LABS: CALCIUM 8.4 mg/dL (8.5-10.1)
[2022-10-22] MEDS ORDERED: INSULIN (NOVOLOG) ASPART 100 UNITS/ML 10ML VIAL ONE (17:58)
[2022-10-22] MEDS: INSULIN (LEVEMIR) 100 UNITS/ML UNITS SQ SCH (23:17)
[2022-10-22] MEDS: THIAMINE HCL 100 MG TABLET (FP) PO SCH (23:17)
[2022-10-23] MEDS: metFORMIN HCL 500 MG TABLET (FP) PO SCH ×2 (08:09→17:16)
[2022-10-23] MEDS: INSULIN SLIDING SCALE (NOVOLOG) 1 VIAL SQ SCH ×4 (08:36→23:14)
[2022-10-23] MEDS: PRENATAL VITAMINS W/ FOLIC ACID TABLET (FP) PO SCH (10:41)
[2022-10-23] MEDS: METOPROLOL TARTRATE 25 MG TABLET (FP) PO SCH ×2 (10:42→23:04)
[2022-10-23] MEDS: amLODIPine BESYLATE 10 MG TABLET (FP) PO SCH (10:42)
[2022-10-23] MEDS: METHOCARBAMOL 500 MG TABLET PO PRN (17:16)
[2022-10-23] MEDS: THIAMINE HCL 100 MG TABLET (FP) PO SCH (23:04)
[2022-10-23] MEDS: INSULIN (LEVEMIR) 100 UNITS/ML UNITS SQ SCH (23:19)
[2022-10-23] MEDS ORDERED: INSULIN (NOVOLOG) ASPART 100 UNITS/ML 10ML VIAL ONE (23:28)
[2022-10-23] MEDS ORDERED: INSULIN (LEVEMIR) 100 UNITS/ML UNITS SQ ONE (23:28)
[2022-10-24] MEDS: metFORMIN HCL 500 MG TABLET (FP) PO SCH ×3 (06:16→17:41)
[2022-10-24] MEDS: INSULIN SLIDING SCALE (NOVOLOG) 1 VIAL SQ SCH ×5 (06:38→22:52)
[2022-10-24] MEDS ORDERED: methaDONE HCL 10 MG TABLET (FOR DETOX USE ONLY) PO ONE (10:00)
[2022-10-24] MEDS: METOPROLOL TARTRATE 25 MG TABLET (FP) PO SCH ×2 (10:59→22:51)
[2022-10-24] MEDS: PRENATAL VITAMINS W/ FOLIC ACID TABLET (FP) PO SCH (10:59)
[2022-10-24] MEDS: amLODIPine BESYLATE 10 MG TABLET (FP) PO SCH (10:59)
[2022-10-24] MEDS ORDERED: SODIUM POLYSTYRENE SULFONATE 15 GM/60 ML BOTTLE PO ONE ×2 (16:13→21:00)
[2022-10-24] MEDS: THIAMINE HCL 100 MG TABLET (FP) PO SCH (22:51)
[2022-10-24] MEDS: INSULIN (LEVEMIR) 100 UNITS/ML UNITS SQ SCH (22:52)
[2022-10-24] MEDS: MELATONIN 5 MG TABLETS PO PRN (22:52)
[2022-10-24] MEDS ORDERED: INSULIN (NOVOLOG) ASPART 100 UNITS/ML 10ML VIAL ONE (22:57)
[2022-10-25] MEDS: metFORMIN HCL 500 MG TABLET (FP) PO SCH (06:08)
[2022-10-25] MEDS: INSULIN SLIDING SCALE (NOVOLOG) 1 VIAL SQ SCH (06:08)
[2022-10-25 06:36] VITALS: RESP 20
[2022-10-25 10:48] VITALS: BP 151/91; PULSE 111; TEMP 97.7
[2022-10-25] MEDS: amLODIPine BESYLATE 10 MG TABLET (FP) PO SCH (10:58)
[2022-10-25] MEDS: METOPROLOL TARTRATE 25 MG TABLET (FP) PO SCH (10:58)
[2022-10-25] MEDS: PRENATAL VITAMINS W/ FOLIC ACID TABLET (FP) PO SCH (10:59)
[2022-10-25 12:01] LABS: ALBUMIN 2.5 g/dl (3.4-5.0); BLOOD UREA NITROGEN 45.3 mg/dL (7-18); CALCIUM 7.3 mg/dL (8.5-10.1)
[2022-10-25 12:04] LABS: CREATININE 1.7 mg/dL (0.55-1.3)
[2022-10-25 12:05] LABS: PHOSPHOROUS 5.8 mg/dL (2.5-4.9)
[2022-10-25 12:06] LABS: BILIRUBIN,TOTAL 0.3 mg/dL (0.2-1); TOT PROT 6.2 g/dl (6.4-8.2)
== END 2022-10-25 10:32 | disposition home or self-care (01) | DRG 773 ==
LOC: YASAS 13:42 → Y6N 19:39
PROVIDERS: ADMIT Allergy & Immunology; ATTEND Surgery
PROC: HZ2ZZZZ Detoxification Services for Substance Abuse Treatment (ICD-10-PCS; principal; 2022-10-20)
DX: F11.23 Opioid dependence with withdrawal (principal); F14.20 Cocaine dependence, uncomplicated; F12.20 Cannabis dependence, uncomplicated; F17.210 Nicotine dependence, cigarettes, uncomplicated; F32.A Depression, unspecified; E87.5 Hyperkalemia; I10 Essential (primary) hypertension; E11.9 Type 2 diabetes mellitus without complications; Z79.4 Long term (current) use of insulin; R79.89 Other specified abnormal findings of blood chemistry; Z20.822 Contact with and (suspected) exposure to COVID-19
CPT/HCPCS: 36415; 80053; 80069; 82962; 85027; 86780; C9803-CS; U0003; U0005